=== PATIENT | female | born 1950 | race Caucasian/White ===

== ENCOUNTER → 2016-12-02 | Outpatient (CLI) | payer BC ==
--- NOTE | 2016-12-03 09:09 | RAD ---
DATE: 12/02/2016 EXAM: MAMMO YOLY SCREENING BILATERAL HISTORY: Routine screening COMPARISON: 06/14/2015 The breast parenchyma is heterogeneously dense, which could reduce sensitivity of mammography. Breast parenchyma level C. FINDINGS: 2-D and 3-D tomosynthesis imaging was performed in CC and MLO projections. No new or enlarging breast densities are seen. There are small benign-appearing lymph node type densities projected over the axillary tail region of the right breast, better delineated on today's tomosynthesis images than on the prior 2-D views. Minimal benign type calcifications present. No suspicious microcalcifications are evident. IMPRESSION: There is no mammographic evidence of malignancy in either breast. BI-RADS CATEGORY: 2 BENIGN FINDING(S) RECOMMENDED FOLLOW-UP: 6M 6 MONTH FOLLOW-UP PQRS compliance statement: Patient information was entered into a reminder system with a target due date for the next mammogram. Mammography is a sensitive method for finding small breast cancers, but it does not detect them all and is not a substitute for careful clinical examination. A negative mammogram does not negate a clinically suspicious finding and should not result in delay in biopsying a clinically suspicious abnormality. "Our facility is accredited by the [employer] Mammography [employer]."
== END | disposition home or self-care (01) ==
LOC: KCIC MAMMO 13:17
PROVIDERS: ATTEND Family Medicine
DX: Z12.31 Encounter for screening mammogram for malignant neoplasm of breast (principal)
CPT/HCPCS: 77063; G0202; 77067

== ENCOUNTER → 2020-04-12 | Outpatient (CLI) | payer MEDICARE ==
--- NOTE | 2020-04-12 19:01 | KCIC ---
BILATERAL SCREENING MAMMOGRAM, 3-D History: Routine screening. Comparison: Bilateral mammogram December 20, 2016. Technique: MLO and CC digital tomosynthesis (3D) images obtained. Radiologist reviewed these images on dedicated workstation. Findings: Breast Tissue Density C : The breasts are heterogeneously dense, which may obscure small masses. Bilateral glandular nodularity in the right breast is stable. There are no dominant masses, suspicious microcalcifications or architectural distortion. IMPRESSION: No mammographic evidence of malignancy. Recommend routine screening. BI-RADS category 2: Benign findings. The images were reviewed with computer-aided detection. Patient information is entered into reminder system with a target due date for the next screening [facility] mogram. Mammography is the most sensitive method for finding small breast cancers, but it does not detect the m all and is not a substitute for careful clinical examination. A negative mammogram does not negate a clinically suspicious finding and should not result in delay in biopsying a clinically suspicious a bnormality. "Our facility is accredited by the [employer] Mammography [employer]." Electronically signed by: Saulo Morfin MD (04/12/2020 6:58 PM) [email or web address]
== END ==
LOC: KCIC MAMMO 10:34
PROVIDERS: ATTEND Obstetrics & Gynecology
DX: Z12.31 Encounter for screening mammogram for malignant neoplasm of breast (principal)
CPT/HCPCS: 77063; 77067

== ENCOUNTER 2021-01-23 16:08 | Inpatient (IN) | payer MEDICARE ==
[~2021-01-23] VITALS: Ht 154.9 cm; Wt 77.2 kg
[2021-01-23] MEDS ORDERED: ONDANSETRON PF 4 MG/2 ML VIAL. IVP ONE (16:30)
[2021-01-23] MEDS ORDERED: MORPHINE SULFATE 4 MG/ML INJ. IVP ONE ×2 (16:30→18:00)
--- NOTE | 2021-01-23 17:04 | ED.ADGEN ---
Past Medical History Additional Past Medical Histor: PRE DIABETIC Past Surgical History: Cholecystectomy Additional Past Surgical Histo: SHOULDER Smoking Status: Never Smoker Alcohol Use: Rarely General Adult EDM: Chief Complaint: ANKLE PROBLEM HPI: HPI: Patient is a 70-year-old female who arrives via EMS after injuring her right ankle. Patient reportedly was chasing her cat when she slipped on some grass and felt her right ankle buckle. Patient states upon evaluating her ankle she noticed it was deformed as well as swollen. Patient also reports a significant pain associated with this injury. Despite this injury, the patient is without injury otherwise. Specifically she denies any injury to her foot or knee. She is awake, alert and in obvious discomfort. Review of Systems: Review of Systems: Constitutional: Denies fever or chills. [] Eyes: Denies change in visual acuity. [] HENT: Denies nasal congestion or sore throat. [] Respiratory: Denies cough or shortness of breath. [] Cardiovascular: Denies chest pain or edema. [] GI: Denies abdominal pain, nausea, vomiting, bloody stools or diarrhea. [] : Denies dysuria. [] Musculoskeletal: Reports extremity swelling as well as pain. Also reports joint swelling and joint pain. Denies back pain. [] Integument: Denies rash. [] Neurologic: Denies headache, focal weakness or sensory changes. [] Endocrine: Denies polyuria or polydipsia. [] Lymphatic: Denies swollen glands. [] Psychiatric: Denies depression or anxiety. [] Current Medications: Current Medications Medications (Trade) Dose Ordered Sig/Anaya Start Time Stop Time Status Last Admin Dose Admin Morphine Sulfate (Morphine Sulfate) 4 mg 1X ONCE 01/23/21 16:30 01/23/21 16:31 DC 01/23/21 16:35 4 MG Ondansetron HCl (Zofran) 4 mg 1X ONCE 01/23/21 16:30 01/23/21 16:31 DC 01/23/21 16:35 4 MG Propofol (Diprivan) 200 mg 1X ONCE 01/23/21 17:30 01/23/21 17:31 DC 01/23/21 17:41 200 MG Allergies: Allergies: Allergies Coded Allergies Type Severity Reaction Last Updated Verified No Known Drug Allergies 01/23/21 No Physical Exam: PE: Constitutional: Well developed, well nourished, no acute distress, non-toxic appearance. [] HENT: Normocephalic, atraumatic, bilateral external ears normal, oropharynx moist, no oral exudates, nose normal. [] Eyes: PERRLA, EOMI, conjunctiva normal, no discharge. [] Neck: Normal range of motion, no tenderness, supple, no stridor. [] Cardiovascular:Heart rate regular rhythm, no murmur [] Lungs & Thorax: Bilateral breath sounds clear to auscultation [] Abdomen: Bowel sounds normal, soft, no tenderness, no masses, no pulsatile masses. [] Skin: Warm, dry, no erythema, no rash. [] Back: No tenderness, no CVA tenderness. [] Extremities: Patient has what appears to be a deformity of the right ankle. There is an abrasion medially which does appear to be new. The patient does have sensation preserved as well as movement of her toes. No cyanosis, no clubbing, ROM intact, no edema. [] Neurologic: Alert and oriented X 3, normal motor function, normal sensory fun ction, no focal deficits noted. [] Psychologic: Affect normal, judgement normal, mood normal. [] Current Patient Data: Vital Signs: Vital Signs Date Time Temp Pulse Resp B/P (MAP) Pulse Ox O2 Delivery O2 Flow Rate FiO2 01/23/21 17:42 98.0 68 18 163/83 4.0 68 4.0 01/23/21 16:35 99 01/23/21 16:15 Room Air EKG: EKG: EKG was obtained at 1808 hrs. and reveals a normal sinus rhythm with a ve ntricular rate of 63 bpm. There are no acute ST/T wave changes to denote ischemia. This is an otherwise normal EKG. [] Heart Score: C/O Chest Pain: N/A Risk Factors: Risk Factors: DM, Current or recent (<one month) smoker, HTN, HLP, family history of CAD, obesity. Risk Scores: Score 0 - 3: 2.5% MACE over next 6 weeks - Discharge Home Score 4 - 6: 20.3% MACE over next 6 weeks - Admit for Clinical Observation Score 7 - 10: 72.7% MACE over next 6 weeks - Early Invasive Strategies Radiology/Procedures: Radiology/Procedures: [] Impression: [facility] [address] [place] [address] IMAGING REPORT Signed PATIENT: GISELLA MYLES ACCOUNT: [id number] : 1950 LOCATION: ER AGE: 70 SEX: F EXAM STATUS: REG ER ORD. PHYSICIAN: PATRICIA BRANDT DO REASON: injury/deformity PROCEDURE: ANKLE RIGHT 3V Exam: Right ankle 3 views INDICATION: Injury/deformity TECHNIQUE: Frontal, lateral oblique views of the right ankle Comparisons: None FINDINGS: There is a comminuted trimalleolar fracture of the right ankle obliquely oriented fracture at the distal fibula. A mildly displaced transverse fracture through the medial malleolus and a moderately displaced fracture to the posterior malleolus. There is dislocation at the tibiotalar joint space. Mild surrounding soft tissue swelling. Bone mineralization is normal. IMPRESSION: Comminuted trimalleolar fracture of the right ankle with dislocation at the tibiotalar joint space. Electronically signed by: Santiago Savage MD (01/23/2021 5:39 PM) [facility] DICTATED and SIGNED BY: SANTIAGO SAVAGE MD DATE: 01/23/21 [id number] Course & Med Decision Making: Course & Med Decision Making Pertinent Labs and Imaging studies reviewed. (See chart for details). The patient is awake, alert and in no acute distress. Patient was successfully reduced in the emergency department and repeat imaging was performed and showed a successful reduction with fracture maintained. Given the extent of the injury the patient has been admitted to the hospital service and Dr. Underwood from orthopedics has been consulted and has agreed to perform surgical intervention tomorrow. I have communicated this to the patient and she is in agreement with this course of action. She tolerated sedation very well and is nontoxic- appearing and resting comfortably without any supplemental oxygen required. She awaits transport to the floor. []1800hrs--I assumed care at shift change. Dr. Brandt attempted a closed reduction with conscious sedation but x-ray revealed procedure was unsuccessful. I evaluated the patient. Consent was obtained. Performed a second conscious sedation with closed reduction. Patient received a total of 120 mg of propofol. Initial dose of propofol was was 60 mg followed by 40 followed by an additional 20. Once successful anesthesia was achieved previous splint was removed I applied countertraction and alignment improved. We then resplinted patient's right lower extremity. X-ray was performed and shows improved align ment of the tibia upon talus. Dorsalis pedis and and posterior tibialis pulses palpated. Patient's right lower extremity propped up on a pillow. She was observed to presedation mental status. Patient tolerated conscious sedation closed reduction without complications. 1900hrs-patient is to go to the operating room. Dragon Disclaimer: Dragon Disclaimer: This electronic medical record was generated, in whole or in part, using a voice recognition dictation system. Procedural Sedation Proc Sed Indication: Fracture dislocation of right ankle [] Consent: I have discussed with the patient and/or the patient customer account representative the indication, alternatives, and the possible risks and /or complications of the planned procedure and the anesthesia methods. The patient and/or patient customer account representative appear to understand and agree to proceed. Pre-Sedation Documentation and Exam: Please refer to history of present illness and physical exam. There is obvious ankle deformity with pulses maintained. Airway Assessment: normal. Prior History of Anesthesia Complications: none. ASA Classification: 2 [] Sedation/ Anesthesia Plan: Propofol [] Medications Used: see nursing notes. Monitoring and Safety: The patient was placed on a regulatory affairs strategy specialist and vital signs, pulse oximetry and level of consciousness were continuously evaluated throughout the procedure. The patient was closely monitored until recovery from the medications was complete and the patient had returned to baseline status. Respiratory therapy was on standby at all times during the procedure. (The following sections must be completed) Post-Sedation Vital Signs: [EDM.VS] Post-Sedation Exam: [Successful reduction with pulses obtained in dorsalis pedis as well as medial malleolar regions.] Complications: none. Departure Departure Impression: Primary Impression: Fracture dislocation of right ankle joint Disposition: ADMITTED INPATIENT Admitting Physician: HIMS Condition: STABLE Referrals: VIRGIE PENA (PCP) PATRICIA BRANDT DO Jan 23, 2021 17:04 NITHYA GONZALEZ I DO Jan 23, 2021 19:00
[2021-01-23] MEDS ORDERED: PROPOFOL 10 MG/ML (20ML) VIAL. IV ONE ×3 (17:30→19:12)
--- NOTE | 2021-01-23 17:41 | RAD ---
Exam: Right ankle 3 views INDICATION: Injury/deformity TECHNIQUE: Frontal, lateral oblique views of the right ankle Comparisons: None FINDINGS: There is a comminuted trimalleolar fracture of the right ankle obliquely oriented fracture at the dis gustavo fibula. A mildly displaced transverse fracture through the medial malleolus and a moderately disp laced fracture to the posterior malleolus. There is dislocation at the tibiotalar joint space. Mild s urrounding soft tissue swelling. Bone mineralization is normal. IMPRESSION: Comminuted trimalleolar fracture of the right ankle with dislocation at the tibiotalar joint space. Electronically signed by: Santiago Bird MD (01/23/2021 5:39 PM) [facility]
[2021-01-23 17:42] VITALS: BP 163/83
--- NOTE | 2021-01-23 17:50 | PDOC1 ---
History and Physical Date of Service: DOS: DATE: 01/23/21 TIME: 17:47 Chief Complaint: Chief Complain: Fall with right ankle injury History of Present Illness: HPI: History obtained from discussion with the ED physician and chart review: 70-year-old female who arrives via EMS after injuring her right ankle. Patient reportedly was chasing her cat when she slipped on some grass and felt her right ankle buckle. Patient states upon evaluating her ankle she noticed it was deformed as well as swollen. Patient also reports a significant pain associated with this injury. Despite this injury, the patient is without injury otherwise. Specifically she denies any injury to her foot or knee. She is awake, alert and in obvious discomfort. Past Medical/Surgical History: PMH/PSH: Past Medical Histor: PRE DIABETIC Past Surgical History: Cholecystectomy, SHOULDER Allergies: Allergies: Coded Allergies: No Known Drug Allergies (Unverified , 01/23/21) Family History: Family History: Reviewed with no relevant findings Social History: Social History: Smoking Status: Never Smoker Alcohol Use: Rarely Current Medications: Current Medications Current Medications Ondansetron HCl (Zofran) 4 mg 1X ONCE IVP Last administered on 01/23/21at 16:35; Start 01/23/21 at 16:30; Stop 01/23/21 at 16:31; Status DC Morphine Sulfate (Morphine Sulfate) 4 mg 1X ONCE IVP Last administered on 01/23/21at 16:35; Start 01/23/21 at 16:30; Stop 01/23/21 at 16:31; Status DC Propofol (Diprivan) 200 mg 1X ONCE IV Last administered on 01/23/21at 17:41; Start 01/23/21 at 17:30; Stop 01/23/21 at 17:31; Status DC ROS: Review of Systems Review of System REVIEW OF SYSTEMS: GENERAL: Denies weakness SKIN: No bruising, hair changes or rashes. EYES: No blurred, double or loss of vision. NOSE AND THROAT: No history of nosebleeds, hoarseness or sore throat. HEART: No history of palpitations, chest pain or shortness of breath on exertion. LUNGS: Denies cough, hemoptysis, wheezing or shortness of breath. GASTROINTESTINAL: Denies changes in appetite, nausea, vomiting, diarrhea or constipation. GENITOURINARY: No history of frequency, urgency, hesitancy or nocturia. NEUROLOGIC: Denies history of numbness, tingling, or tremor. PSYCHIATRIC: No history of panic, anxiety or depression. ENDOCRINE: No history of heat or cold intolerance, polyuria or polydipsia. EXTREMITIES: Right ankle pain Physical Exam: Vital Signs: Vital Signs Date Time Temp Pulse Resp B/P (MAP) Pulse Ox O2 Delivery O2 Flow Rate FiO2 01/23/21 16:35 16 99 01/23/21 16:15 98.0 72 163/83 (109) Room Air 98.0 Physcial Exam: General: Well developed, well nourished, no acute distress, well appearing HEENT: Pupils equally round and reactive to light, EOMI, no discharge, normal conjunctiva Neck: Supple, no nuchal rigidity, no JVD, trachea midline, no tenderness Cardiac: RRR, no murmurs, no gallops, no rubs Chest/Lungs: CTAB, no wheeze, no rhonchi, no crackles Abdomen: soft, non-distended, no guarding, no peritoneal signs, non-tender Back: No tenderness Extremities: no edema, pulses intact, non-tender,capillary refill <3 sec bilateral upper and lower extremities, right ankle deformity Neuro: Alert and oriented x 4, no focal deficits, normal speech Labs: Labs: Pending Images: Images PROCEDURE: ANKLE RIGHT 3V IMPRESSION: Comminuted trimalleolar fracture of the right ankle with dislocation at the tibiotalar joint space. Assessment/Plan Assessment/Plan Mechanical fall Acute right comminuted trimalleolar fracture with dislocation of the tibiotalar joint space, mildly reduced in the ED under sedation History of prediabetes Admit to hospitalist MEY and kobe housing and will versus O2 requirement in the ED 94 and then he also does retest him again or are actually he did he did test positive for Covid gotcha okay and vaccinated for his offender on a gave him steroids already or okay thank you you right yeah yeah we will do that here so is Covid positive sounds good thanks Clarita service for further management Ortho consult for ORIF PT OT modalities IV and p.o. pain control N.p.o. Continue IV fluids Patient is a low risk for surgery, Young score of less than 0.1% Defer to orthopedics for DVT prophylaxis CODE STATUS full Discussed with RN and SW Disposition on-call to the OR tomorrow for ORIF DPOA: Justifications for Admission Other Justification LYDIA VAZQUEZ MD Jan 23, 2021 17:50
[2021-01-23] MEDS ORDERED: MORPHINE SULFATE 4 MG/ML INJ. IVP PRN (18:00)
[2021-01-23] MEDS ORDERED: ONDANSETRON PF 4 MG/2 ML VIAL. IVP PRN (18:00)
--- NOTE | 2021-01-23 18:35 | RAD ---
XR CHEST 1V, XR EXAM OF ANKLE_RIGHT 2 VIEWS One view chest: Clinical History: Reason: pre-operative xray / Spl. Instructions: / History: Technique: AP view of the chest was obtained at 01/23/2021 5:58 PM. Comparison: None. Findings: The cardiomediastinal silhouette is normal. The pulmonary vasculature is normal. The lungs and pleura l margins are clear. Impression: No evidence of an acute cardiopulmonary process. End impression 2 views right ankle 6:09 PM HISTORY: Postreduction Limited 2 view AP lateral views COMPARISON: 5:12 PM There is a spiral fracture of the distal fibula at and above the level plafond and with posterior dis placement and angulation. There is a fracture through the medial malleolus just below the level of th e plafond and there is posterior displacement of the talus from the tibia and a distracted fracture o f the posterior malleolus. IMPRESSION: Trimalleolar fracture dislocation. There is significant improved alignment however there continues to be full shaft width posterior disp lacement of the talus from the tibia and posterior displacement and angulation of the distal fibula a nd posterior displacement and distraction of the posterior malleolus. Electronically signed by: Cristiano Vargas III, MD (01/23/2021 6:33 PM) [facility]
[2021-01-23 18:40] VITALS: BP 134/62
[2021-01-23] MEDS ORDERED: HYDROmorphone 2 MG/ML VIAL ONE (18:59)
[2021-01-23] MEDS ORDERED: fentaNYL PF VIAL 100 MCG/2 ML VIAL ONE ×2 (19:12→21:56)
[2021-01-23] MEDS ORDERED: FAMOTIDINE 20 MG/2 ML VIAL ONE (19:12)
[2021-01-23] MEDS ORDERED: SUCCINYLCHOLINE 200 MG/10 ML VIAL. ONE (19:12)
[2021-01-23] MEDS ORDERED: PROPOFOL 50 ML IV ONE (19:12)
[2021-01-23] MEDS ORDERED: LIDOCAINE 2% PF 5 ML VIAL. ONE ×2 (19:12)
[2021-01-23] MEDS ORDERED: METOCLOPRAMIDE HCL 10 MG/2 ML VIAL. ONE (19:13)
[2021-01-23] MEDS ORDERED: ONDANSETRON PF 4 MG/2 ML VIAL. ONE (19:13)
[2021-01-23] MEDS ORDERED: HYDROmorphone 2 MG/ML VIAL IVP ONE (19:15)
--- NOTE | 2021-01-23 19:21 | RAD ---
Exam: Right ankle 2 views INDICATION: Post reduction TECHNIQUE: Frontal and lateral views of the right ankle Comparisons: Radiograph earlier today FINDINGS: There is redemonstration of trimalleolar fracture of the right ankle with mildly improved alignment. There is improved alignment at the tibiotalar joint space. No other fractures are identified. IMPRESSION: Moderately improved alignment at the trimalleolar fracture/dislocation of the right ankle Electronically signed by: Santiago Bird MD (01/23/2021 7:19 PM) [facility]
[2021-01-23] MEDS ORDERED: ACETAMINOPHEN 325 MG TABLET. PO PRN (19:30)
[2021-01-23] MEDS ORDERED: DOCUSATE SODIUM 100 MG CAPSULE. PO PRN (19:30)
[2021-01-23] MEDS ORDERED: IV RINGERS,LACTATED 1000ML 1,000 ML IV SCH (19:30)
[2021-01-23] MEDS ORDERED: fentaNYL PF VIAL 100 MCG/2 ML VIAL IVP PRN ×2 (19:30→22:30)
[2021-01-23] MEDS ORDERED: MORPHINE SULFATE 2 MG/ML INJ. IVP PRN ×2 (19:30)
[2021-01-23] MEDS ORDERED: HYDROmorphone 2 MG/ML VIAL IVP PRN (19:30)
[2021-01-23] MEDS ORDERED: HYDROcodone/APAP 5/325MG 1 TAB TABLET PO PRN (19:30)
[2021-01-23] MEDS ORDERED: MORPHINE SULFATE 2 MG/ML INJ. IV PRN (19:30)
[2021-01-23] MEDS ORDERED: PROCHLORPERAZINE 10 MG/2 ML VIAL. IVP PRN (19:30)
[2021-01-23] MEDS ORDERED: DEXTROSE 50% 25 GM / 50ML DISP.SYRIN. IV PRN ×2 (19:30→22:30)
[2021-01-23] MEDS ORDERED: BUPIVACAINE MPF 0.5% 30 ML VIAL. ONE (19:39)
[2021-01-23] MEDS ORDERED: MIDAZOLAM HCL/PF 2 MG/2 ML VIAL. ONE (19:42)
[2021-01-23] MEDS ORDERED: ceFAZolin SODIUM IV Push 1 GM VIAL. IVP ONE ×3 (20:14→20:30)
[2021-01-23] MEDS ORDERED: PHENYLEPHRINE in 0.9% NACL PF 1 MG/10 ML SYRINGE. IV ONE (20:16)
[2021-01-23] MEDS ORDERED: SEVOFLURANE > 120 MINUTES. IH ONE (21:43)
[2021-01-23] MEDS ORDERED: PROCHLORPERAZINE 10 MG/2 ML VIAL. ONE (21:59)
[2021-01-23] MEDS: fentaNYL PF VIAL 100 MCG/2 ML VIAL IVP PRN ×2 (22:03→22:18)
--- NOTE | 2021-01-23 22:23 | PDOC4 ---
Operative Note Operative Note Date of surgery: 01/23/2021 Preoperative diagnosis: Right trimalleolar ankle fracture dislocation Postoperative diagnosis: Same Operative procedure: Operative reduction internal fixation bimalleolar portion of trimalleolar ankle fracture Surgeon: Kj Anesthesia: General Estimated blood loss: 50 cc Complications: None Operative indications: Please see my dictated orthopedic consultation for detailed operative indications and note that we elected to proceed with more emergent surgery tonight based on the significant instability of her ankle as she subluxed again following an initial reduction procedure and I was concerned with overall instability or potential cartilage damage to her skin compromise if we waited overnight. I talked through with her the risks benefits postoperative course of the operative procedure including the possibility of infection skin complications nonhealing nerve or blood vessel damage stiffness pain swelling particularly given her history of swelling prior to her injury as well as medical other anesthetic complications. She agrees to proceed with surgical evaluation and treatment Operative text: Patient was identified procedure verified patient placed in the supine position on the operating table. After adequate amounts of general anesthesia were administered the right lower extremity was prepped and draped in standard sterile fashion and after timeout was performed patient procedure identified and verified the right lower extremity was exsanguinated by Esmarch bandage tourniquet inflated to 300 mm mercury and a curvilinear incision was m omega over the medial malleolus slightly anterior to the more posterior medial abrasions of the skin. Subperiosteal dissection was carried out and anatomic reduction of the medial fragment carried out under fluoroscopic guidance and fixation carried out with a 4.0 half threaded cannulated screw. A lateral incision was made and subperiosteal dissection carried out of the distal fibula which was visually reduced with near anatomic alignment verified to restore the ankle joint mortise and a Lainey 8 hole distal fibular locking plate stainless steel was placed shaft fixation carried out with nonlocking 3.5 screws and distal fixation with 2.7 locking screws. Excellent alignment of the plate and hardware was noted ankle joint mortise was noted to be in anatomic alignment and satisfactory reduction of the posterior malleolar fragment was obtained and did not require fixation due to the amount of arc involved. Positioning verified under multiple fluoroscopic views there irrigation carried out normal saline solution closure accomplished with buried Vicryl suture skin closure with pao a well-padded Ortho-Glass posterior splint was then placed toes were noted to be warm pink following deflation of the tourniquet after total tourniquet time slightly in excess of 1 hour. Patient was returned to recovery room in stable condition having tolerated procedure well SHLOMO CALIX MD Jan 23, 2021 22:23
[2021-01-23] MEDS ORDERED: POLYETHYLENE GLYCOL 3350 17 GM PACKET. PO PRN (22:30)
--- NOTE | 2021-01-23 22:35 | NUR ---
Patient received from PACU per bed to room 408. Admitting diagnosis: Right ankle fracture with dislocation. Patient had an ORIF of right ankle by Dr. Underwood. Patient is drowsy but alert. Patient lives alone. Patient has NKA. Patient right leg in elevated on pillows. Patient drifts off to sleep easily. Dressings C,D & I. Will continue to monitor.
[2021-01-23 23:03] VITALS: BP 144/72
[2021-01-23 23:23] VITALS: BP 138/67
[2021-01-24] VITALS (9 sets, daily range): BP systolic 114–159; BP diastolic 51–64
[2021-01-24 02:53] LABS: BASO % 0 % (0-3); EOS % 0 % (0-3); HEMATOCRIT 35.1 % (36.0-47.0); HEMOGLOBIN 11.8 g/dL (12.0-15.5); LYMPH # 0.4 x10^3/uL (1.0-4.8); LYMPH % 4 % (24-48); MEAN CORPUSCULAR HEMOGLOBIN 30 pg (25-35); MEAN CORPUSCULAR HGB CONC 34 g/dL (31-37); MEAN CORPUSCULAR VOLUME 90 fL (79-100); MONO # 0.6 x10^3/uL (0.0-1.1); MONO % 5 % (0-9); NEUT # 9.9 x10^3/uL (1.8-7.7); NEUT % 91 % (31-73); PLATELET COUNT 226 x10^3/uL (140-400); RED CELL DISTRIBUTION WIDTH 14.9 % (11.5-14.5); WHITE BLOOD COUNT 10.9 x10^3/uL (4.0-11.0)
[2021-01-24 03:03] LABS: PROTHROMBIN TIME PATIENT 13.6 SEC (11.7-14.0)
[2021-01-24 03:09] LABS: CALCIUM 7.6 mg/dL (8.5-10.1); CREATININE 0.9 mg/dL (0.6-1.0); GFR 61.7; MAGNESIUM 1.7 mg/dL (1.8-2.4); PHOSPHORUS 3.3 mg/dL (2.6-4.7)
[2021-01-24] MEDS: HYDROcodone/APAP 5/325MG 1 TAB TABLET PO PRN (03:49)
[2021-01-24] MEDS: ceFAZolin SODIUM IV Push 1 GM VIAL. IVP SCH ×3 (04:05→17:29)
[2021-01-24] MEDS: ONDANSETRON PF 4 MG/2 ML VIAL. IVP PRN ×4 (04:11→23:10)
[2021-01-24 05:28] LABS: % BANDS 8 % (0-9); % BASOS 1 % (0-3); % LYMPHS 6 % (24-48); % MONOS 3 % (0-10); % SEGS 82 % (35-66); PLT ESTIMATE ADEQUATE (ADEQUATE)
[2021-01-24] MEDS: IV NORMAL SALINE 1000ML BAG 1,000 ML IV SCH ×4 (05:30→23:13)
[2021-01-24] MEDS: PROCHLORPERAZINE 10 MG/2 ML VIAL. IV PRN ×2 (05:47→12:53)
[2021-01-24] MEDS ORDERED: MAGNESIUM HYDROXIDE 2,400 MG/30 ML ORAL.SUSP. PO PRN (06:00)
--- NOTE | 2021-01-24 07:29 | PDOC ---
PROGRESS NOTES Date of Service DATE: 01/24/21 TIME: 07:28 Subjective Subjective Problems overnight: Right ankle is painful and had difficulties with pain overnight really not responding to doses as much as 4 mg of morphine Objective Vital Signs Vital Signs Date Time Temp Pulse Resp B/P (MAP) Pulse Ox O2 Delivery O2 Flow Rate FiO2 01/24/21 04:16 20 Room Air 2.0 01/24/21 03:29 98.0 78 118/58 (78) 99 98.0 Physical Exam Can wiggle toes distal capillary refill intact splint clean dry intact Labs Laboratory Tests Test 01/23/21 18:00 01/24/21 02:30 SARS-CoV-2 Antigen (Rapid) Negative (NEGATIVE) White Blood Count 10.9 x10^3/uL (4.0-11.0) Red Blood Count 3.90 x10^6/uL (3.50-5.40) Hemoglobin 11.8 g/dL (12.0-15.5) Hematocrit 35.1 % (36.0-47.0) Mean Corpuscular Volume 90 fL (79-100) Mean Corpuscular Hemoglobin 30 pg (25-35) Mean Corpuscular Hemoglobin Concent 34 g/dL (31-37) Red Cell Distribution Width 14.9 % (11.5-14.5) Platelet Count 226 x10^3/uL (140-400) Neutrophils (%) (Auto) 91 % (31-73) Lymphocytes (%) (Auto) 4 % (24-48) Monocytes (%) (Auto) 5 % (0-9) Eosinophils (%) (Auto) 0 % (0-3) Basophils (%) (Auto) 0 % (0-3) Neutrophils # (Auto) 9.9 x10^3/uL (1.8-7.7) Lymphocytes # (Auto) 0.4 x10^3/uL (1.0-4.8) Monocytes # (Auto) 0.6 x10^3/uL (0.0-1.1) Eosinophils # (Auto) 0.0 x10^3/uL (0.0-0.7) Basophils # (Auto) 0.0 x10^3/uL (0.0-0.2) Segmented Neutrophils % 82 % (35-66) Band Neutrophils % 8 % (0-9) Lymphocytes % 6 % (24-48) Monocytes % 3 % (0-10) Basophils % 1 % (0-3) Platelet Estimate Adequate (ADEQUATE) Prothrombin Time 13.6 SEC (11.7-14.0) Prothromb Time International Ratio 1.0 (0.8-1.1) Sodium Level 139 mmol/L (136-145) Potassium Level 4.0 mmol/L (3.5-5.1) Chloride Level 105 mmol/L (98-107) Carbon Dioxide Level 26 mmol/L (21-32) Anion Gap 8 (6-14) Blood Urea Nitrogen 13 mg/dL (7-20) Creatinine 0.9 mg/dL (0.6-1.0) Estimated GFR (Cockcroft-Gault) 61.7 Glucose Level 149 mg/dL (70-99) Calcium Level 7.6 mg/dL (8.5-10.1) Phosphorus Level 3.3 mg/dL (2.6-4.7) Magnesium Level 1.7 mg/dL (1.8-2.4) Laboratory Tests Test 01/23/21 18:00 01/24/21 02:30 SARS-CoV-2 Antigen (Rapid) Negative (NEGATIVE) White Blood Count 10.9 x10^3/uL (4.0-11.0) Red Blood Count 3.90 x10^6/uL (3.50-5.40) Hemoglobin 11.8 g/dL (12.0-15.5) Hematocrit 35.1 % (36.0-47.0) Mean Corpuscular Volume 90 fL (79-100) Mean Corpuscular Hemoglobin 30 pg (25-35) Mean Corpuscular Hemoglobin Concent 34 g/dL (31-37) Red Cell Distribution Width 14.9 % (11.5-14.5) Platelet Count 226 x10^3/uL (140-400) Neutrophils (%) (Auto) 91 % (31-73) Lymphocytes (%) (Auto) 4 % (24-48) Monocytes (%) (Auto) 5 % (0-9) Eosinophils (%) (Auto) 0 % (0-3) Basophils (%) (Auto) 0 % (0-3) Neutrophils # (Auto) 9.9 x10^3/uL (1.8-7.7) Lymphocytes # (Auto) 0.4 x10^3/uL (1.0-4.8) Monocytes # (Auto) 0.6 x10^3/uL (0.0-1.1) Eosinophils # (Auto) 0.0 x10^3/uL (0.0-0.7) Basophils # (Auto) 0.0 x10^3/uL (0.0-0.2) Segmented Neutrophils % 82 % (35-66) Band Neutrophils % 8 % (0-9) Lymphocytes % 6 % (24-48) Monocytes % 3 % (0-10) Basophils % 1 % (0-3) Platelet Estimate Adequate (ADEQUATE) Prothrombin Time 13.6 SEC (11.7-14.0) Prothromb Time International Ratio 1.0 (0.8-1.1) Sodium Level 139 mmol/L (136-145) Potassium Level 4.0 mmol/L (3.5-5.1) Chloride Level 105 mmol/L (98-107) Carbon Dioxide Level 26 mmol/L (21-32) Anion Gap 8 (6-14) Blood Urea Nitrogen 13 mg/dL (7-20) Creatinine 0.9 mg/dL (0.6-1.0) Estimated GFR (Cockcroft-Gault) 61.7 Glucose Level 149 mg/dL (70-99) Calcium Level 7.6 mg/dL (8.5-10.1) Phosphorus Level 3.3 mg/dL (2.6-4.7) Magnesium Level 1.7 mg/dL (1.8-2.4) Imaging Intra-Op fluoroscopy views show excellent alignment with bimalleolar fixation of a trimalleolar ankle fracture Assessment Assessment POD#1 ORIF bimalleolar portion of trimalleolar right ankle fracture Plan Plan of Care Nonweightbearing to right lower extremity Stable from an orthopedic standpoint as long as she can get up and around maintaining nonweightbearing status Plan follow-up in about 10 to 14 days in orthopedic office with Mr. Chamorro Carlitosicifation of Admission Dx: Justifications for Admission: Justification of Admission Dx: N/A SHLOMO CALIX MD Jan 24, 2021 07:29
[2021-01-24] MEDS: HYDROmorphone 2 MG/ML VIAL IVP PRN ×4 (07:33→23:17)
--- NOTE | 2021-01-24 08:51 | CONS ---
DATE OF CONSULTATION: 01/23/2021 ORTHOPEDIC CONSULTATION REASON FOR CONSULTATION: Right trimalleolar ankle fracture dislocation. HISTORY OF PRESENT ILLNESS: The patient is a 70-year-old female who was actually out trying to direct a cow when she slipped on some grass and turned her right ankle over. She had immediate onset of deformity and inability to bear weight. She denies any loss of consciousness, other joint injury, hitting her head. No neck or back pain. PAST MEDICAL HISTORY: She has been told that she is prediabetic and indicates only being on a diuretic off and on previously and notes that even prior to the right ankle injury, that she had had some swelling in that right leg. PAST SURGICAL HISTORY: Shoulder surgery and cholecystectomy. SOCIAL HISTORY: Independently ambulatory. Denies smoking or drug use. Rare use of alcohol. ALLERGIES: She has no known drug allergies. MEDICATIONS: Only include Meloxicam, which she has not taken over the past several days. There was a diuretic. She was not sure if she knew the exact name of that, she had been taking for a few days. REVIEW OF SYSTEMS: Denies any chest pain, shortness of breath, any visual change, headache, focal weakness, numbness, tingling, neck or back pain, any other joint pain. She does have obvious right ankle pain, deformity, swelling and some preexisting swelling in the right lower extremity prior to the injury that she reports. PHYSICAL EXAMINATION: GENERAL: Pleasant, cooperative 70-year-old female, alert and oriented, in no acute distress. EXTREMITIES: On examination of the left ankle, she has no skin deformity, but does have swelling and gross instability of the ankle. Tenderness over the medial and lateral posterior malleoli. She can wiggle her toes gently and has distal capillary refill, sensation and palpable pulses in the bilateral feet. Normal alignment and stability, bilateral hips and knees. Likewise, normal alignment and stability, bilateral shoulders, elbows and wrists, with intact motor function, distal pulses, sensation, reflexes, skin in both upper extremities throughout. LABORATORY DATA: X-rays show a displaced trimalleolar ankle fracture dislocation, with initial reduction attempt showing posterior subluxation better in the subsequent attempt. IMPRESSION: Trimalleolar ankle fracture dislocation. TREATMENT PLAN: I went over with her my rationale for going ahead to fix this surgically tonight because of the instability. I really do not want it to potentially slip out of joint again and spend a longer time, potentially with cartilage damage or to allow much more swelling that may preclude early surgery and fixation. We went through the risks of potential infection, nerve or blood vessel damage, continued pain, nonhealing, swelling even more than her baseline, medical or other anesthetic complications among others. All her questions were answered. She does wish to proceed with surgical evaluation and treatment, which will occur this evening as I discuss the alternatives with of Anesthesia. URSULA/XU/RIMA DR: URSULA/[place] TID: [id number]
[2021-01-24] MEDS: ASPIRIN 325 MG TABLET PO SCH (09:28)
[2021-01-24] MEDS: oxyCODONE IR 5 MG TABLET PO PRN ×2 (09:28→18:01)
[2021-01-24] MEDS: SENNOSIDES 8.6 MG TABLET PO PRN (09:28)
[2021-01-24] MEDS: SENNOSIDES/DOCUSATE 8.6/50MG TABLET. PO SCH (09:32)
--- NOTE | 2021-01-24 10:21 | NUR ---
SW following. Discussed with RN, pt from home alone, 2L (due to medications), GI soft, Rapid COVID-19 negative. Pt had surgery on 01/23/21. PT/OT ordered. RN advised no SW needs at this time. SW will continue to follow.
--- NOTE | 2021-01-24 12:47 | PDOC ---
[facility] PROGRESS NOTE Date of Service DOS: DATE: 01/24/21 TIME: 12:44 Chief Complaint Chief Complaint Fall History of Present Illness History of Present Illness History obtained from discussion with the ED physician and chart review: 70-year-old female who arrives via EMS after injuring her right ankle. Patient reportedly was chasing her cat when she slipped on some grass and felt her right ankle buckle. Patient states upon evaluating her ankle she noticed it was deformed as well as swollen. Patient also reports a significant pain associated with this injury. Despite this injury, the patient is without injury otherwise. Specifically she denies any injury to her foot or knee. She is awake, alert and in obvious discomfort 01/24 Patient examined at bedside. Underwent surgery yesterday. This morning complaining of some pain but overall doing well. PT OT per Ortho. Vitals/I&O Vitals/I&O: Vital Signs Date Time Temp Pulse Resp B/P (MAP) Pulse Ox O2 Delivery O2 Flow Rate FiO2 01/24/21 12:35 97 Nasal Cannula 2.0 01/24/21 10:34 98.4 53 20 114/61 (78) 98.4 I & O 01/23/21 01/23/21 01/24/21 15:00 23:00 07:00 Intake Total 1200 ml 120 ml Output Total 50 ml Balance 1150 ml 120 ml Physical Exam General: Alert, Oriented X3, Cooperative Heart: Regular rate, Normal S1, Normal S2 Lungs: Clear Abdomen: Normal bowel sounds, Soft, No tenderness Extremities: No edema, Normal pulses Skin: No significant lesion Labs Labs: Laboratory Tests Test 01/23/21 18:00 01/24/21 02:30 SARS-CoV-2 Antigen (Rapid) Negative (NEGATIVE) White Blood Count 10.9 x10^3/uL (4.0-11.0) Red Blood Count 3.90 x10^6/uL (3.50-5.40) Hemoglobin 11.8 g/dL (12.0-15.5) Hematocrit 35.1 % (36.0-47.0) Mean Corpuscular Volume 90 fL (79-100) Mean Corpuscular Hemoglobin 30 pg (25-35) Mean Corpuscular Hemoglobin Concent 34 g/dL (31-37) Red Cell Distribution Width 14.9 % (11.5-14.5) Platelet Count 226 x10^3/uL (140-400) Neutrophils (%) (Auto) 91 % (31-73) Lymphocytes (%) (Auto) 4 % (24-48) Monocytes (%) (Auto) 5 % (0-9) Eosinophils (%) (Auto) 0 % (0-3) Basophils (%) (Auto) 0 % (0-3) Neutrophils # (Auto) 9.9 x10^3/uL (1.8-7.7) Lymphocytes # (Auto) 0.4 x10^3/uL (1.0-4.8) Monocytes # (Auto) 0.6 x10^3/uL (0.0-1.1) Eosinophils # (Auto) 0.0 x10^3/uL (0.0-0.7) Basophils # (Auto) 0.0 x10^3/uL (0.0-0.2) Segmented Neutrophils % 82 % (35-66) Band Neutrophils % 8 % (0-9) Lymphocytes % 6 % (24-48) Monocytes % 3 % (0-10) Basophils % 1 % (0-3) Platelet Estimate Adequate (ADEQUATE) Prothrombin Time 13.6 SEC (11.7-14.0) Prothromb Time International Ratio 1.0 (0.8-1.1) Sodium Level 139 mmol/L (136-145) Potassium Level 4.0 mmol/L (3.5-5.1) Chloride Level 105 mmol/L (98-107) Carbon Dioxide Level 26 mmol/L (21-32) Anion Gap 8 (6-14) Blood Urea Nitrogen 13 mg/dL (7-20) Creatinine 0.9 mg/dL (0.6-1.0) Estimated GFR (Cockcroft-Gault) 61.7 Glucose Level 149 mg/dL (70-99) Calcium Level 7.6 mg/dL (8.5-10.1) Phosphorus Level 3.3 mg/dL (2.6-4.7) Magnesium Level 1.7 mg/dL (1.8-2.4) Assessment and Plan Assessmemt and Plan Problems Medical Problems: (1) Fracture dislocation of right ankle joint Status: Acute Mechanical fall Acute right comminuted trimalleolar fracture with dislocation of the tibiotalar joint space, mildly reduced in the ED under sedation History of prediabetes Ortho consult for ORIF --> s/p ORIF PT OT modalities IV and p.o. pain control Diet Continue IV fluids Patient is a low risk for surgery, Young score of less than 0.1% Defer to orthopedics for DVT prophylaxis CODE STATUS full Discussed with RN and CELE DPOA: Comment Review of Relevant I have reviewed the following items charles (where applicable) has been applied. Medications: Current Medications Medications (Trade) Dose Ordered Sig/Anaya Route PRN Reason Start Time Stop Time Status Last Admin Dose Admin Ondansetron HCl (Zofran) 4 mg 1X ONCE IVP 01/23/21 16:30 01/23/21 16:31 DC 01/23/21 16:35 Morphine Sulfate (Morphine Sulfate) 4 mg 1X ONCE IVP 01/23/21 16:30 01/23/21 16:31 DC 01/23/21 16:35 Propofol (Diprivan) 200 mg 1X ONCE IV 01/23/21 17:30 01/23/21 17:31 DC 01/23/21 17:41 Morphine Sulfate (Morphine Sulfate) 4 mg PRN Q2HR PRN IVP PAIN 01/23/21 18:00 01/24/21 17:59 01/24/21 03:08 Morphine Sulfate (Morphine Sulfate) 4 mg 1X ONCE IVP 01/23/21 18:00 01/23/21 18:22 DC 01/23/21 18:03 Propofol (Diprivan) 60 mg 1X ONCE IV 01/23/21 18:30 01/23/21 18:35 DC 01/23/21 18:32 Hydromorphone HCl (Dilaudid) 0.5 mg 1X ONCE IVP 01/23/21 19:15 01/23/21 19:16 DC 01/23/21 19:15 Fentanyl Citrate (Fentanyl 2ml Vial) 25 mcg PRN Q5MIN PRN IVP MILD PAIN 1-3 01/23/21 19:30 01/24/21 02:00 DC 01/24/21 00:18 Fentanyl Citrate (Fentanyl 2ml Vial) 50 mcg PRN Q5MIN PRN IVP MODERATE PAIN 4-6 01/23/21 19:30 01/24/21 02:00 DC 01/23/21 22:18 Prochlorperazine Edisylate (Compazine) 5 mg PACU PRN PRN IVP NAUSEA, MRX1 01/23/21 19:30 01/24/21 02:00 DC 01/23/21 22:02 Ondansetron HCl (Zofran) 4 mg PRN Q6HRS PRN IVP NAUSEA/VOMITING (1st Choice) 01/23/21 19:30 01/24/21 04:11 Sodium Chloride 1,000 ml @ 100 mls/hr Q10H IV 01/23/21 19:30 01/24/21 07:37 Acetaminophen/ Hydrocodone Bitart (Lortab 5/325) 2 tab PRN Q4HRS PRN PO MODERATE PAIN, SEVERE PAIN 01/23/21 19:30 01/24/21 03:49 Morphine Sulfate (Morphine Sulfate) 2 mg PRN Q2HR PRN IVP SEVERE PAIN 7-10 01/23/21 19:30 01/24/21 19:29 01/23/21 23:19 Prochlorperazine Edisylate (Compazine) 10 mg PRN Q6HRS PRN IV NAUSEA/VOMITING (2nd Choice) 01/23/21 19:30 01/24/21 05:47 Cefazolin Sodium/ Dextrose 50 ml @ 100 mls/hr 1X ONCE IV 01/23/21 22:00 01/23/21 22:29 DC 01/23/21 20:08 Oxycodone HCl (Roxicodone) 5 mg PRN Q3HRS PRN PO MODERATE PAIN 4-6 01/23/21 22:30 01/24/21 09:28 Fentanyl Citrate (Fentanyl 2ml Vial) 25 mcg PRN Q1HR PRN IVP SEVERE PAIN 7-10 01/23/21 22:30 01/24/21 03:46 Senna/Docusate Sodium (Senna Plus) 1 tab DAILY PO 01/24/21 09:00 01/24/21 09:32 Ondansetron HCl (Zofran) 4 mg PRN Q4HRS PRN IVP NAUSEA/VOMITING 1ST CHOICE 01/23/21 22:30 01/24/21 09:47 Aspirin (Katerina Aspirin) 325 mg DAILYWBKFT PO 01/24/21 08:00 01/24/21 09:28 Cefazolin Sodium (Ancef) 1 gm Q6H IVP 01/24/21 04:00 01/24/21 16:01 01/24/21 09:33 Hydromorphone HCl (Dilaudid) 0.4 mg PRN Q2HR PRN IVP SEVERE PAIN 7-10 01/24/21 06:45 01/24/21 07:33 Justifications for Admission Other Justification Right ankle fracture KYLE HURST MD Jan 24, 2021 12:47
[2021-01-24] MEDS ORDERED: PANTOPRAZOLE IV PUSH 40 MG VIAL. IVP SCH (13:00)
[2021-01-24] MEDS ORDERED: PANT40TA6 PO (13:17)
[2021-01-24] MEDS ORDERED: ESTR1PAT33 TD (13:17)
[2021-01-24] MEDS ORDERED: IV NORMAL SALINE 1000ML BAG 1,000 ML IV ONE (14:30)
[2021-01-24] MEDS ORDERED: diphenhydrAMINE 50 MG/ML VIAL IVP PRN (14:30)
[2021-01-24] MEDS ORDERED: BISACODYL 10 MG SUPP.RECT. PR PRN (16:00)
[2021-01-24] MEDS: PANTOPRAZOLE IV PUSH 40 MG VIAL. IVP SCH (21:41)
[2021-01-25] MEDS: HYDROcodone/APAP 5/325MG 1 TAB TABLET PO PRN ×3 (00:35→20:40)
[2021-01-25 03:00] VITALS: BP 123/52
[2021-01-25] MEDS: PANTOPRAZOLE IV PUSH 40 MG VIAL. IVP SCH ×2 (06:29→16:41)
[2021-01-25 07:00] VITALS: BP 121/54
[2021-01-25 07:24] LABS: BASO % 1 % (0-3); EOS # 0.1 x10^3/uL (0.0-0.7); EOS % 2 % (0-3); HEMATOCRIT 29.6 % (36.0-47.0); HEMOGLOBIN 9.9 g/dL (12.0-15.5); LYMPH # 1.3 x10^3/uL (1.0-4.8); LYMPH % 22 % (24-48); MEAN CORPUSCULAR HEMOGLOBIN 30 pg (25-35); MEAN CORPUSCULAR HGB CONC 34 g/dL (31-37); MEAN CORPUSCULAR VOLUME 91 fL (79-100); MONO # 0.6 x10^3/uL (0.0-1.1); MONO % 10 % (0-9); NEUT # 3.9 x10^3/uL (1.8-7.7); NEUT % 65 % (31-73); PLATELET COUNT 175 x10^3/uL (140-400); RED BLOOD COUNT 3.27 x10^6/uL (3.50-5.40); RED CELL DISTRIBUTION WIDTH 14.9 % (11.5-14.5)
[2021-01-25 07:43] LABS: CALCIUM 7.3 mg/dL (8.5-10.1); CREATININE 0.7 mg/dL (0.6-1.0); GFR 82.5; MAGNESIUM 1.8 mg/dL (1.8-2.4); POTASSIUM 3.3 mmol/L (3.5-5.1)
[2021-01-25] MEDS: SENNOSIDES 8.6 MG TABLET PO PRN ×2 (08:34→08:35)
[2021-01-25] MEDS: ASPIRIN 325 MG TABLET PO SCH ×2 (08:34→08:35)
[2021-01-25] MEDS: SENNOSIDES/DOCUSATE 8.6/50MG TABLET. PO SCH (08:38)
[2021-01-25] MEDS: IV NORMAL SALINE 1000ML BAG 1,000 ML IV SCH ×2 (08:48→19:21)
--- NOTE | 2021-01-25 09:06 | PDOC ---
PROGRESS NOTES Date of Service DATE: 01/25/21 TIME: 09:04 Subjective Subjective Problems overnight: Still having some struggles with pain control particularly last night, reports getting up and around maintaining nonweightbearing status with physical therapy but has really not used the knee scooter that is currently in her room yet Objective Vital Signs Vital Signs Date Time Temp Pulse Resp B/P (MAP) Pulse Ox O2 Delivery O2 Flow Rate FiO2 01/25/21 03:00 98.6 73 18 123/52 (75) 94 Room Air 98.6 01/25/21 01:11 2.0 Physical Exam Splint clean dry intact she is able to wiggle her toes distal capillary refill sensation are intact Labs Laboratory Tests Test 01/23/21 18:00 01/24/21 02:30 01/25/21 05:50 SARS-CoV-2 Antigen (Rapid) Negative (NEGATIVE) White Blood Count 10.9 x10^3/uL (4.0-11.0) 6.0 x10^3/uL (4.0-11.0) Red Blood Count 3.90 x10^6/uL (3.50-5.40) 3.27 x10^6/uL (3.50-5.40) Hemoglobin 11.8 g/dL (12.0-15.5) 9.9 g/dL (12.0-15.5) Hematocrit 35.1 % (36.0-47.0) 29.6 % (36.0-47.0) Mean Corpuscular Volume 90 fL (79-100) 91 fL (79-100) Mean Corpuscular Hemoglobin 30 pg (25-35) 30 pg (25-35) Mean Corpuscular Hemoglobin Concent 34 g/dL (31-37) 34 g/dL (31-37) Red Cell Distribution Width 14.9 % (11.5-14.5) 14.9 % (11.5-14.5) Platelet Count 226 x10^3/uL (140-400) 175 x10^3/uL (140-400) Neutrophils (%) (Auto) 91 % (31-73) 65 % (31-73) Lymphocytes (%) (Auto) 4 % (24-48) 22 % (24-48) Monocytes (%) (Auto) 5 % (0-9) 10 % (0-9) Eosinophils (%) (Auto) 0 % (0-3) 2 % (0-3) Basophils (%) (Auto) 0 % (0-3) 1 % (0-3) Neutrophils # (Auto) 9.9 x10^3/uL (1.8-7.7) 3.9 x10^3/uL (1.8-7.7) Lymphocytes # (Auto) 0.4 x10^3/uL (1.0-4.8) 1.3 x10^3/uL (1.0-4.8) Monocytes # (Auto) 0.6 x10^3/uL (0.0-1.1) 0.6 x10^3/uL (0.0-1.1) Eosinophils # (Auto) 0.0 x10^3/uL (0.0-0.7) 0.1 x10^3/uL (0.0-0.7) Basophils # (Auto) 0.0 x10^3/uL (0.0-0.2) 0.0 x10^3/uL (0.0-0.2) Segmented Neutrophils % 82 % (35-66) Band Neutrophils % 8 % (0-9) Lymphocytes % 6 % (24-48) Monocytes % 3 % (0-10) Basophils % 1 % (0-3) Platelet Estimate Adequate (ADEQUATE) Prothrombin Time 13.6 SEC (11.7-14.0) Prothromb Time International Ratio 1.0 (0.8-1.1) Sodium Level 139 mmol/L (136-145) 142 mmol/L (136-145) Potassium Level 4.0 mmol/L (3.5-5.1) 3.3 mmol/L (3.5-5.1) Chloride Level 105 mmol/L (98-107) 109 mmol/L (98-107) Carbon Dioxide Level 26 mmol/L (21-32) 28 mmol/L (21-32) Anion Gap 8 (6-14) 5 (6-14) Blood Urea Nitrogen 13 mg/dL (7-20) 8 mg/dL (7-20) Creatinine 0.9 mg/dL (0.6-1.0) 0.7 mg/dL (0.6-1.0) Estimated GFR (Cockcroft-Gault) 61.7 82.5 Glucose Level 149 mg/dL (70-99) 106 mg/dL (70-99) Calcium Level 7.6 mg/dL (8.5-10.1) 7.3 mg/dL (8.5-10.1) Phosphorus Level 3.3 mg/dL (2.6-4.7) Magnesium Level 1.7 mg/dL (1.8-2.4) 1.8 mg/dL (1.8-2.4) Laboratory Tests Test 01/25/21 05:50 White Blood Count 6.0 x10^3/uL (4.0-11.0) Red Blood Count 3.27 x10^6/uL (3.50-5.40) Hemoglobin 9.9 g/dL (12.0-15.5) Hematocrit 29.6 % (36.0-47.0) Mean Corpuscular Volume 91 fL (79-100) Mean Corpuscular Hemoglobin 30 pg (25-35) Mean Corpuscular Hemoglobin Concent 34 g/dL (31-37) Red Cell Distribution Width 14.9 % (11.5-14.5) Platelet Count 175 x10^3/uL (140-400) Neutrophils (%) (Auto) 65 % (31-73) Lymphocytes (%) (Auto) 22 % (24-48) Monocytes (%) (Auto) 10 % (0-9) Eosinophils (%) (Auto) 2 % (0-3) Basophils (%) (Auto) 1 % (0-3) Neutrophils # (Auto) 3.9 x10^3/uL (1.8-7.7) Lymphocytes # (Auto) 1.3 x10^3/uL (1.0-4.8) Monocytes # (Auto) 0.6 x10^3/uL (0.0-1.1) Eosinophils # (Auto) 0.1 x10^3/uL (0.0-0.7) Basophils # (Auto) 0.0 x10^3/uL (0.0-0.2) Sodium Level 142 mmol/L (136-145) Potassium Level 3.3 mmol/L (3.5-5.1) Chloride Level 109 mmol/L (98-107) Carbon Dioxide Level 28 mmol/L (21-32) Anion Gap 5 (6-14) Blood Urea Nitrogen 8 mg/dL (7-20) Creatinine 0.7 mg/dL (0.6-1.0) Estimated GFR (Cockcroft-Gault) 82.5 Glucose Level 106 mg/dL (70-99) Calcium Level 7.3 mg/dL (8.5-10.1) Magnesium Level 1.8 mg/dL (1.8-2.4) Imaging Intra-Op fluoroscopic views show excellent positioning of a bimalleolar portion of a trimalleolar ankle fracture Assessment Assessment POD#ORIF right ankle fracture dislocation Plan Plan of Detention if medically stable and safe with ambulation and transfers Follow-up with Dr. Underwood or Ashtyn 10 to 14 days Strict nonweightbearing right lower extremity in the interim Justicifation of Admission Dx: Justifications for Admission: Justification of Admission Dx: N/A SHLOMO UNDEROWOD MD Jan 25, 2021 09:06
[2021-01-25] MEDS: MORPHINE SULFATE 2 MG/ML INJ. IVP PRN ×2 (09:51→20:40)
[2021-01-25 11:00] VITALS: BP 119/59
--- NOTE | 2021-01-25 12:00 | PDOC ---
[facility] PROGRESS NOTE Date of Service DOS: DATE: 01/25/21 TIME: 11:59 Chief Complaint Chief Complaint Fall History of Present Illness History of Present Illness History obtained from discussion with the ED physician and chart review: 70-year-old female who arrives via EMS after injuring her right ankle. Patient reportedly was chasing her cat when she slipped on some grass and felt her right ankle buckle. Patient states upon evaluating her ankle she noticed it was deformed as well as swollen. Patient also reports a significant pain associated with this injury. Despite this injury, the patient is without injury otherwise. Specifically she denies any injury to her foot or knee. She is awake, alert and in obvious discomfort 01/24 Patient examined at bedside. Underwent surgery yesterday. This morning complaining of some pain but overall doing well. PT OT per Ortho. 01/25 Patient seen at bedside. Is endorsing some ongoing pain. Worked with physical therapy. Likely will need SNF placement to continue nonweightbearing status. Vitals/I&O Vitals/I&O: Vital Signs Date Time Temp Pulse Resp B/P (MAP) Pulse Ox O2 Delivery O2 Flow Rate FiO2 01/25/21 11:00 98.0 79 18 119/59 (79) 94 Room Air 98.0 01/25/21 01:11 2.0 I & O 01/24/21 01/24/21 01/25/21 15:00 23:00 07:00 Intake Total 600 ml 1000 ml Balance 600 ml 1000 ml Physical Exam General: Alert, Oriented X3, Cooperative Heart: Regular rate, Normal S1, Normal S2 Lungs: Clear Abdomen: Normal bowel sounds, Soft, No tenderness Extremities: No edema, Normal pulses Skin: No significant lesion Labs Labs: Laboratory Tests Test 01/25/21 05:50 White Blood Count 6.0 x10^3/uL (4.0-11.0) Red Blood Count 3.27 x10^6/uL (3.50-5.40) Hemoglobin 9.9 g/dL (12.0-15.5) Hematocrit 29.6 % (36.0-47.0) Mean Corpuscular Volume 91 fL (79-100) Mean Corpuscular Hemoglobin 30 pg (25-35) Mean Corpuscular Hemoglobin Concent 34 g/dL (31-37) Red Cell Distribution Width 14.9 % (11.5-14.5) Platelet Count 175 x10^3/uL (140-400) Neutrophils (%) (Auto) 65 % (31-73) Lymphocytes (%) (Auto) 22 % (24-48) Monocytes (%) (Auto) 10 % (0-9) Eosinophils (%) (Auto) 2 % (0-3) Basophils (%) (Auto) 1 % (0-3) Neutrophils # (Auto) 3.9 x10^3/uL (1.8-7.7) Lymphocytes # (Auto) 1.3 x10^3/uL (1.0-4.8) Monocytes # (Auto) 0.6 x10^3/uL (0.0-1.1) Eosinophils # (Auto) 0.1 x10^3/uL (0.0-0.7) Basophils # (Auto) 0.0 x10^3/uL (0.0-0.2) Sodium Level 142 mmol/L (136-145) Potassium Level 3.3 mmol/L (3.5-5.1) Chloride Level 109 mmol/L (98-107) Carbon Dioxide Level 28 mmol/L (21-32) Anion Gap 5 (6-14) Blood Urea Nitrogen 8 mg/dL (7-20) Creatinine 0.7 mg/dL (0.6-1.0) Estimated GFR (Cockcroft-Gault) 82.5 Glucose Level 106 mg/dL (70-99) Calcium Level 7.3 mg/dL (8.5-10.1) Magnesium Level 1.8 mg/dL (1.8-2.4) Assessment and Plan Assessmemt and Plan Problems Medical Problems: (1) Fracture dislocation of right ankle joint Status: Acute Mechanical fall Acute right comminuted trimalleolar fracture with dislocation of the tibiotalar joint space, mildly reduced in the ED under sedation History of prediabetes Ortho consult for ORIF --> s/p ORIF PT OT modalities IV and p.o. pain control Diet PT/OT CODE STATUS full Discussed with RN and CELE DPOA: Comment Review of Relevant I have reviewed the following items charles (where applicable) has been applied. Medications: Current Medications Medications (Trade) Dose Ordered Sig/Anaya Route PRN Reason Start Time Stop Time Status Last Admin Dose Admin Pantoprazole Sodium (PROTONIX VIAL for IV PUSH) 40 mg DAILYAC IVP 01/24/21 13:00 01/24/21 17:54 DC 01/24/21 12:53 Sodium Chloride 1,000 ml @ 1,000 mls/hr 1X ONCE IV 01/24/21 14:30 01/24/21 15:29 DC 01/24/21 14:40 Diphenhydramine HCl (Benadryl) 12.5 mg PRN Q4HRS PRN IVP ALLERGIES 01/24/21 14:30 01/24/21 14:37 Lorazepam (Ativan Inj) 2 mg PRN Q4HRS PRN IVP ANXIETY / AGITATION 01/24/21 14:30 01/25/21 01:02 Pantoprazole Sodium (PROTONIX VIAL for IV PUSH) 40 mg BIDAC IVP 01/24/21 21:00 01/25/21 06:29 Justifications for Admission Other Justification Right ankle fracture KYLE HURST MD Jan 25, 2021 12:00
[2021-01-25 15:00] VITALS: BP 125/62
[2021-01-25 19:20] VITALS: BP 148/66
--- NOTE | 2021-01-25 20:30 | NUR ---
At 1999 patient was trying to go to bathroom to void and patient fell. Patient was being assisted by [employer] and was using walker and gait belt. Patient assisted back to bed and instructed to use bedside commode next time. Patient agreed to using bedside commode the next time she needed to urinate.
[2021-01-25 23:19] VITALS: BP 154/67
[2021-01-26] MEDS: MORPHINE SULFATE 2 MG/ML INJ. IVP PRN (01:03)
[2021-01-26] MEDS: HYDROcodone/APAP 5/325MG 1 TAB TABLET PO PRN ×3 (01:04→18:16)
[2021-01-26 03:21] VITALS: BP 146/68
[2021-01-26 04:53] LABS: BASO % 1 % (0-3); EOS # 0.2 x10^3/uL (0.0-0.7); EOS % 3 % (0-3); HEMATOCRIT 30.8 % (36.0-47.0); HEMOGLOBIN 10.4 g/dL (12.0-15.5); LYMPH # 1.3 x10^3/uL (1.0-4.8); LYMPH % 20 % (24-48); MEAN CORPUSCULAR HEMOGLOBIN 31 pg (25-35); MEAN CORPUSCULAR HGB CONC 34 g/dL (31-37); MEAN CORPUSCULAR VOLUME 90 fL (79-100); MONO # 0.6 x10^3/uL (0.0-1.1); MONO % 9 % (0-9); NEUT # 4.4 x10^3/uL (1.8-7.7); NEUT % 67 % (31-73); PLATELET COUNT 189 x10^3/uL (140-400); RED BLOOD COUNT 3.41 x10^6/uL (3.50-5.40); RED CELL DISTRIBUTION WIDTH 14.8 % (11.5-14.5); WHITE BLOOD COUNT 6.5 x10^3/uL (4.0-11.0)
[2021-01-26 05:07] LABS: CALCIUM 7.5 mg/dL (8.5-10.1); CREATININE 0.7 mg/dL (0.6-1.0); GFR 82.5; MAGNESIUM 1.8 mg/dL (1.8-2.4); POTASSIUM 3.2 mmol/L (3.5-5.1)
[2021-01-26] MEDS: IV NORMAL SALINE 1000ML BAG 1,000 ML IV SCH (05:57)
[2021-01-26 07:15] VITALS: BP 142/68
[2021-01-26] MEDS: SENNOSIDES/DOCUSATE 8.6/50MG TABLET. PO SCH (07:55)
[2021-01-26] MEDS: PANTOPRAZOLE IV PUSH 40 MG VIAL. IVP SCH ×2 (07:55→16:21)
[2021-01-26] MEDS: ONDANSETRON PF 4 MG/2 ML VIAL. IVP PRN (09:23)
--- NOTE | 2021-01-26 10:39 | PDOC ---
[employer] PROGRESS NOTE Date of Service DOS: DATE: 01/26/21 TIME: 10:38 Chief Complaint Chief Complaint Fall History of Present Illness History of Present Illness History obtained from discussion with the ED physician and chart review: 70-year-old female who arrives via EMS after injuring her right ankle. Patient reportedly was chasing her cat when she slipped on some grass and felt her right ankle buckle. Patient states upon evaluating her ankle she noticed it was deformed as well as swollen. Patient also reports a significant pain associated with this injury. Despite this injury, the patient is without injury otherwise. Specifically she denies any injury to her foot or knee. She is awake, alert and in obvious discomfort 01/24 Patient examined at bedside. Underwent surgery yesterday. This morning complaining of some pain but overall doing well. PT OT per Ortho. 01/25 Patient seen at bedside. Is endorsing some ongoing pain. Worked with physical therapy. Likely will need SNF placement to continue nonweightbearing status. 01/26 Patient evaluated at bedside says pain is definitely still present under more control. Also reports some difficulty sleeping will try the night. Otherwise no changes. Will likely need SNF placement on discharge. Vitals/I&O Vitals/I&O: Vital Signs Date Time Temp Pulse Resp B/P (MAP) Pulse Ox O2 Delivery O2 Flow Rate FiO2 01/26/21 08:00 Room Air 01/26/21 08:00 16 01/26/21 07:15 98.5 84 142/68 (92) 91 98.5 I & O 01/25/21 01/25/21 01/26/21 15:00 23:00 07:00 Intake Total 540 ml 420 ml 2880 ml Balance 540 ml 420 ml 2880 ml Physical Exam General: Alert, Oriented X3, Cooperative Heart: Regular rate, Normal S1, Normal S2 Lungs: Clear Abdomen: Normal bowel sounds, Soft, No tenderness Extremities: No edema, Normal pulses Skin: No significant lesion Labs Labs: Laboratory Tests Test 01/26/21 03:25 White Blood Count 6.5 x10^3/uL (4.0-11.0) Red Blood Count 3.41 x10^6/uL (3.50-5.40) Hemoglobin 10.4 g/dL (12.0-15.5) Hematocrit 30.8 % (36.0-47.0) Mean Corpuscular Volume 90 fL (79-100) Mean Corpuscular Hemoglobin 31 pg (25-35) Mean Corpuscular Hemoglobin Concent 34 g/dL (31-37) Red Cell Distribution Width 14.8 % (11.5-14.5) Platelet Count 189 x10^3/uL (140-400) Neutrophils (%) (Auto) 67 % (31-73) Lymphocytes (%) (Auto) 20 % (24-48) Monocytes (%) (Auto) 9 % (0-9) Eosinophils (%) (Auto) 3 % (0-3) Basophils (%) (Auto) 1 % (0-3) Neutrophils # (Auto) 4.4 x10^3/uL (1.8-7.7) Lymphocytes # (Auto) 1.3 x10^3/uL (1.0-4.8) Monocytes # (Auto) 0.6 x10^3/uL (0.0-1.1) Eosinophils # (Auto) 0.2 x10^3/uL (0.0-0.7) Basophils # (Auto) 0.0 x10^3/uL (0.0-0.2) Sodium Level 140 mmol/L (136-145) Potassium Level 3.2 mmol/L (3.5-5.1) Chloride Level 106 mmol/L (98-107) Carbon Dioxide Level 27 mmol/L (21-32) Anion Gap 7 (6-14) Blood Urea Nitrogen 6 mg/dL (7-20) Creatinine 0.7 mg/dL (0.6-1.0) Estimated GFR (Cockcroft-Gault) 82.5 Glucose Level 102 mg/dL (70-99) Calcium Level 7.5 mg/dL (8.5-10.1) Magnesium Level 1.8 mg/dL (1.8-2.4) Assessment and Plan Assessmemt and Plan Problems Medical Problems: (1) Fracture dislocation of right ankle joint Status: Acute Mechanical fall Acute right comminuted trimalleolar fracture with dislocation of the tibiotalar joint space, mildly reduced in the ED under sedation History of prediabetes Ortho consult for ORIF --> s/p ORIF PT OT modalities IV and p.o. pain control Diet PT/OT CODE STATUS full Discussed with RN and SW DPOA: Comment Review of Relevant I have reviewed the following items charles (where applicable) has been applied. Justifications for Admission Other Justification Right ankle fracture KYLE HURST MD Jan 26, 2021 10:39
[2021-01-26 11:05] VITALS: BP 146/60
[2021-01-26] MEDS ORDERED: POTASSIUM CHLORIDE 20 MEQ TABLET.ER. PO ONE (14:00)
[2021-01-26 15:00] VITALS: BP 140/75
[2021-01-26] MEDS ORDERED: ZOLPIDEM 5 MG TABLET. PO ONE ×2 (18:00→20:00)
[2021-01-26 19:20] VITALS: BP 150/63
[2021-01-26 23:16] VITALS: BP 138/66
[2021-01-27 03:13] VITALS: BP 136/61
[2021-01-27] MEDS: HYDROcodone/APAP 5/325MG 1 TAB TABLET PO PRN (05:09)
[2021-01-27 07:00] VITALS: BP 128/51
[2021-01-27] MEDS: ASPIRIN 325 MG TABLET PO SCH (08:26)
[2021-01-27] MEDS: SENNOSIDES 8.6 MG TABLET PO PRN (08:26)
[2021-01-27] MEDS: PANTOPRAZOLE IV PUSH 40 MG VIAL. IVP SCH ×2 (08:27→16:27)
[2021-01-27] MEDS: SENNOSIDES/DOCUSATE 8.6/50MG TABLET. PO SCH (08:36)
--- NOTE | 2021-01-27 08:52 | PDOC ---
PROGRESS NOTES Date of Service: DATE: 01/27/21 TIME: 08:52 Chief Complaint Chief Complaint IMPRESSION Fall Operative reduction internal fixation bimalleolar portion of trimalleolar ankle fracture /Surgeon: Kj Follow-up with Dr. Kj Chamorro 10 to 14 days Strict nonweightbearing right lower extremity in the interim History of Present Illness History of Present Illness History obtained from discussion with the ED physician and chart review: 70-year-old female who arrives via EMS after injuring her right ankle. Patient reportedly was chasing her cat when she slipped on some grass and felt her right ankle buckle. Patient states upon evaluating her ankle she noticed it was deformed as well as swollen. Patient also reports a significant pain associated with this injury. Despite this injury, the patient is without injury otherwise. Specifically she denies any injury to her foot or knee. She is awake, alert and in obvious discomfort 01/24 Patient examined at bedside. Underwent surgery yesterday. This morning complaining of some pain but overall doing well. PT OT per Ortho. 01/25 Patient seen at bedside. Is endorsing some ongoing pain. Worked with physical therapy. Likely will need SNF placement to continue nonweightbearing status. 01/26 Patient evaluated at bedside says pain is definitely still present under more control. Also reports some difficulty sleeping will try the night. Otherwise no changes. Will likely need SNF placement on discharge. 01-27 Follow-up with Dr. Kj Chamorro 10 to 14 days Strict nonweightbearing right lower extremity in the interim SNF placement on discharge. [facility] TODAY D/C PLANNING 24 MIN Vitals Vitals Vital Signs Date Time Temp Pulse Resp B/P (MAP) Pulse Ox O2 Delivery O2 Flow Rate FiO2 01/27/21 07:00 98.1 69 16 128/51 (76) 95 Room Air 98.1 01/27/21 05:09 2.0 Physical Exam General: Alert, Oriented X3, Cooperative, No acute distress Heart: Regular rate, Normal S1, Normal S2 Lungs: Clear Abdomen: Normal bowel sounds, Soft, No tenderness Extremities: No edema, Normal pulses Skin: No significant lesion Labs LABS PATIENT: GISELLA MYLES ACCOUNT: [id number] : 1950 LOCATION: [address] [place] [address] AGE: 70 SEX: F EXAM STATUS: ADM IN ORD. PHYSICIAN: ELIDA PRICE REASON: post reduction PROCEDURE: ANKLE RIGHT 2V Exam: Right ankle 2 views INDICATION: Post reduction TECHNIQUE: Frontal and lateral views of the right ankle Comparisons: Radiograph earlier today FINDINGS: There is redemonstration of trimalleolar fracture of the right ankle with mildly improved alignment. There is improved alignment at the tibiotalar joint space. No other fractures are identified. IMPRESSION: Moderately improved alignment at the trimalleolar fracture/dislocation of the right ankle Electronically signed by: Santiago Savage MD (01/23/2021 7:19 PM) [facility] DICTATED and SIGNED BY: SANTIAGO SAVAGE MD DATE: 01/23/21 [id number] Operative Note Operative Note Operative Note Date of surgery: 01/23/2021 Preoperative diagnosis: Right trimalleolar ankle fracture dislocation Postoperative diagnosis: Same Operative procedure: Operative reduction internal fixation bimalleolar portion of trimalleolar ankle fracture Surgeon: Kj Anesthesia: General Estimated blood loss: 50 cc Complications: None Assessment and Plan Assessmemt and Plan Problems Medical Problems: (1) Fracture dislocation of right ankle joint Status: Acute Comment Review of Relevant I have reviewed the following items charles (where applicable) has been applied. Labs Laboratory Tests Test 01/26/21 03:25 White Blood Count 6.5 x10^3/uL (4.0-11.0) Red Blood Count 3.41 x10^6/uL (3.50-5.40) Hemoglobin 10.4 g/dL (12.0-15.5) Hematocrit 30.8 % (36.0-47.0) Mean Corpuscular Volume 90 fL (79-100) Mean Corpuscular Hemoglobin 31 pg (25-35) Mean Corpuscular Hemoglobin Concent 34 g/dL (31-37) Red Cell Distribution Width 14.8 % (11.5-14.5) Platelet Count 189 x10^3/uL (140-400) Neutrophils (%) (Auto) 67 % (31-73) Lymphocytes (%) (Auto) 20 % (24-48) Monocytes (%) (Auto) 9 % (0-9) Eosinophils (%) (Auto) 3 % (0-3) Basophils (%) (Auto) 1 % (0-3) Neutrophils # (Auto) 4.4 x10^3/uL (1.8-7.7) Lymphocytes # (Auto) 1.3 x10^3/uL (1.0-4.8) Monocytes # (Auto) 0.6 x10^3/uL (0.0-1.1) Eosinophils # (Auto) 0.2 x10^3/uL (0.0-0.7) Basophils # (Auto) 0.0 x10^3/uL (0.0-0.2) Sodium Level 140 mmol/L (136-145) Potassium Level 3.2 mmol/L (3.5-5.1) Chloride Level 106 mmol/L (98-107) Carbon Dioxide Level 27 mmol/L (21-32) Anion Gap 7 (6-14) Blood Urea Nitrogen 6 mg/dL (7-20) Creatinine 0.7 mg/dL (0.6-1.0) Estimated GFR (Cockcroft-Gault) 82.5 Glucose Level 102 mg/dL (70-99) Calcium Level 7.5 mg/dL (8.5-10.1) Magnesium Level 1.8 mg/dL (1.8-2.4) Medications Current Medications Ondansetron HCl (Zofran) 4 mg 1X ONCE IVP Last administered on 01/23/21at 16:35; Start 01/23/21 at 16:30; Stop 01/23/21 at 16:31; Status DC Morphine Sulfate (Morphine Sulfate) 4 mg 1X ONCE IVP Last administered on 01/23/21at 16:35; Start 01/23/21 at 16:30; Stop 01/23/21 at 16:31; Status DC Propofol (Diprivan) 200 mg 1X ONCE IV Last administered on 01/23/21at 17:41; Start 01/23/21 at 17:30; Stop 01/23/21 at 17:31; Status DC Ondansetron HCl (Zofran) 4 mg PRN Q8HRS PRN IVP NAUSEA/VOMITING; Start 01/23/21 at 18:00; Stop 01/23/21 at 20:03; Status DC Morphine Sulfate (Morphine Sulfate) 4 mg PRN Q2HR PRN IVP PAIN Last administered on 01/24/21at 03:08; Start 01/23/21 at 18:00; Stop 01/24/21 at 17:59; Status DC Morphine Sulfate (Morphine Sulfate) 4 mg 1X ONCE IVP Last administered on 01/23/21at 18:03; Start 01/23/21 at 18:00; Stop 01/23/21 at 18:22; Status DC Propofol (Diprivan) 60 mg 1X ONCE IV Last administered on 01/23/21at 18:32; Start 01/23/21 at 18:30; Stop 01/23/21 at 18:35; Status DC Hydromorphone HCl (Dilaudid) 2 mg STK-MED ONCE .ROUTE ; Start 01/23/21 at 18:59; Stop 01/23/21 at 18:59; Status DC Hydromorphone HCl (Dilaudid) 0.5 mg 1X ONCE IVP Last administered on 01/23/21at 19:15; Start 01/23/21 at 19:15; Stop 01/23/21 at 19:16; Status DC Lidocaine HCl (Lidocaine Pf 2% Vial) 5 ml STK-MED ONCE .ROUTE ; Start 01/23/21 at 19:12; Stop 01/23/21 at 19:12; Status DC Propofol 50 ml @ As Directed STK-MED ONCE IV ; Start 01/23/21 at 19:12; Stop 01/23/21 at 19:12; Status DC Succinylcholine Chloride (Anectine) 200 mg STK-MED ONCE .ROUTE ; Start 01/23/21 at 19:12; Stop 01/23/21 at 19:12; Status DC Fentanyl Citrate (Fentanyl 2ml Vial) 100 mcg STK-MED ONCE .ROUTE ; Start 01/23/21 at 19:12; Stop 01/23/21 at 19:13; Status DC Propofol (Diprivan) 200 mg STK-MED ONCE IV ; Start 01/23/21 at 19:12; Stop 01/23/21 at 19:13; Status DC Lidocaine HCl (Lidocaine Pf 2% Vial) 5 ml STK-MED ONCE .ROUTE ; Start 01/23/21 at 19:12; Stop 01/23/21 at 19:13; Status DC Famotidine (Pepcid Vial) 20 mg STK-MED ONCE .ROUTE ; Start 01/23/21 at 19:12; Stop 01/23/21 at 19:13; Status DC Ondansetron HCl (Zofran) 4 mg STK-MED ONCE .ROUTE ; Start 01/23/21 at 19:13; Stop 01/23/21 at 19:13; Status DC Metoclopramide HCl (Reglan Vial) 10 mg STK-MED ONCE .ROUTE ; Start 01/23/21 at 19:13; Stop 01/23/21 at 19:13; Status DC Fentanyl Citrate (Fentanyl 2ml Vial) 25 mcg PRN Q5MIN PRN IVP MILD PAIN 1-3 Last administered on 01/24/21at 00:18; Start 01/23/21 at 19:30; Stop 01/24/21 at 02:00; Status DC Fentanyl Citrate (Fentanyl 2ml Vial) 50 mcg PRN Q5MIN PRN IVP MODERATE PAIN 4-6 Last administered on 01/23/21at 22:18; Start 01/23/21 at 19:30; Stop 01/24/21 at 02:00; Status DC Morphine Sulfate (Morphine Sulfate) 1 mg PRN Q10MIN PRN IVP SEVERE PAIN 7-10; Start 01/23/21 at 19:30; Stop 01/24/21 at 02:00; Status DC Ringer's Solution 1,000 ml @ 30 mls/hr Q24H IV ; Start 01/23/21 at 19:30; Stop 01/24/21 at 07:29; Status DC Hydromorphone HCl (Dilaudid) 0.5 mg PRN Q10MIN PRN IVP SEVERE PAIN 7-10, 2nd CHOICE; Start 01/23/21 at 19:30; Stop 01/24/21 at 02:00; Status DC Prochlorperazine Edisylate (Compazine) 5 mg PACU PRN PRN IVP NAUSEA, MRX1 Last administered on 01/23/21at 22:02; Start 01/23/21 at 19:30; Stop 01/24/21 at 02:00; Status DC Sennosides (Senna) 17.2 mg PRN BID PRN PO CONSTIPATION Last administered on 01/27/21at 08:26; Start 01/23/21 at 19:30 Docusate Sodium (Colace) 100 mg PRN DAILY PRN PO HARD STOOLS; Start 01/23/21 at 19:30 Ondansetron HCl (Zofran) 4 mg PRN Q6HRS PRN IVP NAUSEA/VOMITING (1st Choice) Last administered on 01/24/21at 23:10; Start 01/23/21 at 19:30; Stop 01/25/21 at 12:54; Status DC Dextrose (Dextrose 50%-Water Syringe) 12.5 gm PRN Q15MIN PRN IV SEE COMMENTS; Start 01/23/21 at 19:30; Stop 01/23/21 at 22:36; Status DC Sodium Chloride 1,000 ml @ 100 mls/hr Q10H IV Last administered on 01/26/21at 05:57; Start 01/23/21 at 19:30; Stop 01/26/21 at 10:32; Status DC Acetaminophen (Tylenol) 650 mg PRN Q4HRS PRN PO TEMP OVER 100.4F OR MILD PAIN; Start 01/23/21 at 19:30 Acetaminophen/ Hydrocodone Bitart (Lortab 5/325) 1 tab PRN Q4HRS PRN PO MODERATE PAIN; Start 01/23/21 at 19:30 Acetaminophen/ Hydrocodone Bitart (Lortab 5/325) 2 tab PRN Q4HRS PRN PO SEVERE PAIN Last administered on 01/27/21at 05:09; Start 01/23/21 at 19:30 Morphine Sulfate (Morphine Sulfate) 1 mg PRN Q1HR PRN IV PAIN-SEE COMMENTS Last administered on 01/25/21at 00:35; Start 01/23/21 at 19:30 Morphine Sulfate (Morphine Sulfate) 2 mg PRN Q2HR PRN IVP SEVERE PAIN 7-10 Last administered on 01/23/21at 23:19; Start 01/23/21 at 19:30; Stop 01/24/21 at 19:29; Status DC Prochlorperazine Edisylate (Compazine) 10 mg PRN Q6HRS PRN IV NAUSEA/VOMITING (2nd Choice) Last administered on 01/24/21at 12:53; Start 01/23/21 at 19:30 Bupivacaine HCl (Sensorcaine Mpf 0.5%) 30 ml STK-MED ONCE .ROUTE ; Start 01/23/21 at 19:39; Stop 01/23/21 at 19:39; Status DC Midazolam HCl (Versed) 2 mg STK-MED ONCE .ROUTE ; Start 01/23/21 at 19:42; Stop 01/23/21 at 19:42; Status DC Cefazolin Sodium (Ancef) 1 gm STK-MED ONCE IVP ; Start 01/23/21 at 20:14; Stop 01/23/21 at 20:14; Status DC Cefazolin Sodium (Ancef) 1 gm STK-MED ONCE IVP ; Start 01/23/21 at 20:14; Stop 01/23/21 at 20:14; Status DC Phenylephrine HCl (PHENYLEPHRINE in 0.9% NACL PF) 1 mg STK-MED ONCE IV ; Start 01/23/21 at 20:16; Stop 01/23/21 at 20:16; Status DC Sevoflurane (Ultane) 90 ml STK-MED ONCE IH ; Start 01/23/21 at 21:43; Stop 01/23/21 at 21:43; Status DC Cefazolin Sodium/ Dextrose 50 ml @ 100 mls/hr 1X ONCE IV Last administered on 01/23/21at 20:08; Start 01/23/21 at 22:00; Stop 01/23/21 at 22:29; Status DC Fentanyl Citrate (Fentanyl 2ml Vial) 100 mcg STK-MED ONCE .ROUTE ; Start 01/23/21 at 21:56; Stop 01/23/21 at 21:57; Status DC Prochlorperazine Edisylate (Compazine) 10 mg STK-MED ONCE .ROUTE ; Start 01/23/21 at 21:59; Stop 01/23/21 at 21:59; Status DC Oxycodone HCl (Roxicodone) 5 mg PRN Q3HRS PRN PO BREAKTHROUGH PAIN Last administered on 01/24/21at 18:01; Start 01/23/21 at 22:30 Morphine Sulfate (Morphine Sulfate) 2 mg PRN Q1HR PRN IVP SEVERE PAIN 7-10 Last administered on 01/26/21at 01:03; Start 01/23/21 at 22:30 Fentanyl Citrate (Fentanyl 2ml Vial) 25 mcg PRN Q1HR PRN IVP SEVERE PAIN 7-10 Last administered on 01/24/21at 03:46; Start 01/23/21 at 22:30 Senna/Docusate Sodium (Senna Plus) 1 tab DAILY PO Last administered on 01/26/21at 07:55; Start 01/24/21 at 09:00 Polyethylene Glycol (miraLAX PACKET) 17 gm PRN DAILY PRN PO CONSTIPATION 1ST CHOICE; Start 01/23/21 at 22:30 Ondansetron HCl (Zofran) 4 mg PRN Q4HRS PRN IVP NAUSEA/VOMITING 1ST CHOICE Last administered on 01/26/21at 09:23; Start 01/23/21 at 22:30 Aspirin (Katerina Aspirin) 325 mg DAILYWBKFT PO Last administered on 01/27/21at 08:26; Start 01/24/21 at 08:00 Magnesium Hydroxide (Milk Of Magnesia) 2,400 mg 1X PRN PRN PO CONSTIPATION; Start 01/24/21 at 06:00; Stop 01/25/21 at 05:59; Status DC Bisacodyl (Dulcolax Supp) 10 mg 1X PRN PRN ID CONSTIPATION; Start 01/24/21 at 16:00; Stop 01/25/21 at 15:59; Status DC Dextrose (Dextrose 50%-Water Syringe) 12.5 gm PRN Q15MIN PRN IV SEE COMMENTS; Start 01/23/21 at 22:30 Cefazolin Sodium (Ancef) 1 gm Q6H IVP Last administered on 01/24/21at 17:29; Start 01/24/21 at 04:00; Stop 01/24/21 at 16:01; Status DC Hydromorphone HCl (Dilaudid) 0.4 mg PRN Q2HR PRN IVP SEVERE PAIN 7-10 Last administered on 01/24/21at 23:17; Start 01/24/21 at 06:45 Cefazolin Sodium (Ancef) 2 gm STK-MED ONCE IVP ; Start 01/23/21 at 20:30; Stop 01/24/21 at 08:40; Status DC Pantoprazole Sodium (PROTONIX VIAL for IV PUSH) 40 mg DAILYAC IVP Last administered on 01/24/21at 12:53; Start 01/24/21 at 13:00; Stop 01/24/21 at 17:54; Status DC Sodium Chloride 1,000 ml @ 1,000 mls/hr 1X ONCE IV Last administered on 01/24/21at 14:40; Start 01/24/21 at 14:30; Stop 01/24/21 at 15:29; Status DC Diphenhydramine HCl (Benadryl) 12.5 mg PRN Q4HRS PRN IVP ALLERGIES Last administered on 01/24/21at 14:37; Start 01/24/21 at 14:30 Lorazepam (Ativan Inj) 2 mg PRN Q4HRS PRN IVP ANXIETY / AGITATION Last administered on 01/25/21at 01:02; Start 01/24/21 at 14:30 Pantoprazole Sodium (PROTONIX VIAL for IV PUSH) 40 mg BIDAC IVP Last administered on 01/27/21at 08:27; Start 01/24/21 at 21:00 Zolpidem Tartrate (Ambien) 5 mg PRN QHS ONCE PO ; Start 01/26/21 at 18:00; Stop 01/26/21 at 16:37; Status DC Potassium Chloride (Klor-Con) 40 meq 1X ONCE PO Last administered on 01/26/21at 16:21; Start 01/26/21 at 14:00; Stop 01/26/21 at 14:01; Status DC Zolpidem Tartrate (Ambien) 5 mg PRN QHS ONCE PO Last administered on 01/26/21at 20:52; Start 01/26/21 at 20:00; Stop 01/26/21 at 20:01; Status DC Active Scripts Active Reported Estradiol 1 Each Patch.tdwk 1 Patch TD WEEKLY Pantoprazole Sodium 40 Mg Tablet. 1 Tab PO BID Vitals/I & O Vital Sign - Last 24 Hours 01/26/21 01/26/21 01/26/21 01/26/21 11:05 15:00 19:20 19:45 Temp 98.0 98.7 98.1 98.0 98.7 98.1 Pulse 76 68 84 Resp 18 18 18 B/P (MAP) 146/60 (88) 140/75 (96) 150/63 (92) Pulse Ox 95 96 96 O2 Delivery Room Air Room Air Room Air Room Air 01/26/21 01/27/21 01/27/21 01/27/21 23:16 03:13 05:09 05:39 Temp 98.0 98.5 98.0 98.5 Pulse 85 89 Resp 18 18 16 20 B/P (MAP) 138/66 (90) 136/61 (86) Pulse Ox 94 94 94 O2 Delivery Room Air Room Air Room Air Room Air O2 Flow Rate 2.0 01/27/21 07:00 Temp 98.1 98.1 Pulse 69 Resp 16 B/P (MAP) 128/51 (76) Pulse Ox 95 O2 Delivery Room Air Intake and Output 01/26/21 01/26/21 01/27/21 15:00 23:00 07:00 Intake Total 200 ml 480 ml 480 ml Output Total 300 ml Balance 200 ml 180 ml 480 ml Justicifation of Admission Dx: Justifications for Admission: Justification of Admission Dx: N/A JOBY CM MD Jan 27, 2021 08:52
--- NOTE | 2021-01-27 10:05 | NUR ---
PCR swab at 0915. Taken to lab at 0940
[2021-01-27 10:54] VITALS: BP 126/46
[2021-01-27 10:57] LABS: CALCIUM 8.3 mg/dL (8.5-10.1); CREATININE 0.7 mg/dL (0.6-1.0); GFR 82.5; POTASSIUM 3.6 mmol/L (3.5-5.1)
--- NOTE | 2021-01-27 13:17 | PDOC3 ---
Discharge Summary Date of Admission: Jan 23, 2021 Date of Discharge: Jan 27, 2021 Follow-Up: 1-2 days Admitting Diagnosis comment: Chief Complaint Chief Complaint COMPLICATIONS NONE D/C CONDITION GOOD CONSUKTS DR CALIX transfer DX Fall Operative reduction internal fixation bimalleolar portion of trimalleolar ankle fracture /Surgeon: Kj Follow-up with Dr. Kj Chamorro 10 to 14 days Strict nonweightbearing right lower extremity in the interim History of Present Illness History of Present Illness History obtained from discussion with the ED physician and chart review: 70-year-old female who arrives via EMS after injuring her right ankle. Patient reportedly was chasing her cat when she slipped on some grass and felt her right ankle buckle. Patient states upon evaluating her ankle she noticed it was deformed as well as swollen. Patient also reports a significant pain associated with this injury. Despite this injury, the patient is without injury otherwise. Specifically she denies any injury to her foot or knee. She is awake, alert and in obvious discomfort HOSPITAL COURSE 01/24 Patient examined at bedside. Underwent surgery yesterday. This morning complaining of some pain but overall doing well. PT OT per Ortho. 01/25 Patient seen at bedside. Is endorsing some ongoing pain. Worked with physical therapy. Likely will need SNF placement to continue nonweightbearing status. 01/26 Patient evaluated at bedside says pain is definitely still present under more control. Also reports some difficulty sleeping will try the night. Otherwise n o changes. Will likely need SNF placement on discharge. 01-27 Follow-up with Dr. Kj Chamorro 10 to 14 days Strict nonweightbearing right lower extremity in the interim SNF placement on discharge. [facility] TODAY D/C PLANNING 24 MIN Vitals Vitals Vital Signs Date Time Temp Pulse Resp B/P (MAP) Pulse Ox O2 Delivery O2 Flow Rate FiO2 01/27/21 07:00 98.1 69 16 128/51 (76) 95 Room Air 98.1 01/27/21 05:09 2.0 Physical Exam General: Alert, Oriented X3, Cooperative, No acute distress Heart: Regular rate, Normal S1, Normal S2 Lungs: Clear Abdomen: Normal bowel sounds, Soft, No tenderness Extremities: No edema, Normal pulses Skin: No significant lesion Labs LABS PATIENT: GISELLA MYLES ACCOUNT: [id number] : 1950 LOCATION: [address] [place] [address] AGE: 70 SEX: F EXAM STATUS: ADM IN ORD. PHYSICIAN: ELIDA PRICE REASON: post reduction PROCEDURE: ANKLE RIGHT 2V Exam: Right ankle 2 views INDICATION: Post reduction TECHNIQUE: Frontal and lateral views of the right ankle Comparisons: Radiograph earlier today FINDINGS: There is redemonstration of trimalleolar fracture of the right ankle with mildly improved alignment. There is improved alignment at the tibiotalar joint space. No other fractures are identified. IMPRESSION: Moderately improved alignment at the trimalleolar fracture/dislocation of the right ankle Electronically signed by: Santiago Savage MD (01/23/2021 7:19 PM) [facility] DICTATED and SIGNED BY: SANTIAGO SAVAGE MD DATE: 01/23/21 [id number] Operative Note Operative Note Operative Note Date of surgery: 01/23/2021 Preoperative diagnosis: Right trimalleolar ankle fracture dislocation Postoperative diagnosis: Same Operative procedure: Operative reduction internal fixation bimalleolar portion of trimalleolar ankle fracture Surgeon: Kj Anesthesia: General Estimated blood loss: 50 cc Complications: None Assessment and Plan Assessmemt and Plan Problems Medical Problems: (1) Fracture dislocation of right ankle joint Status: Acute Comment Review of Relevant I have reviewed the following items charles (where applicable) has been applied. Labs Laboratory Tests Test 01/26/21 03:25 White Blood Count 6.5 x10^3/uL (4.0-11.0) Red Blood Count 3.41 x10^6/uL (3.50-5.40) Hemoglobin 10.4 g/dL (12.0-15.5) Hematocrit 30.8 % (36.0-47.0) Mean Corpuscular Volume 90 fL (79-100) Mean Corpuscular Hemoglobin 31 pg (25-35) Mean Corpuscular Hemoglobin Concent 34 g/dL (31-37) Red Cell Distribution Width 14.8 % (11.5-14.5) Platelet Count 189 x10^3/uL (140-400) Neutrophils (%) (Auto) 67 % (31-73) Lymphocytes (%) (Auto) 20 % (24-48) Monocytes (%) (Auto) 9 % (0-9) Eosinophils (%) (Auto) 3 % (0-3) Basophils (%) (Auto) 1 % (0-3) Neutrophils # (Auto) 4.4 x10^3/uL (1.8-7.7) Lymphocytes # (Auto) 1.3 x10^3/uL (1.0-4.8) Monocytes # (Auto) 0.6 x10^3/uL (0.0-1.1) Eosinophils # (Auto) 0.2 x10^3/uL (0.0-0.7) Basophils # (Auto) 0.0 x10^3/uL (0.0-0.2) Sodium Level 140 mmol/L (136-145) Potassium Level 3.2 mmol/L (3.5-5.1) Chloride Level 106 mmol/L (98-107) Carbon Dioxide Level 27 mmol/L (21-32) Anion Gap 7 (6-14) Blood Urea Nitrogen 6 mg/dL (7-20) Creatinine 0.7 mg/dL (0.6-1.0) Estimated GFR (Cockcroft-Gault) 82.5 Glucose Level 102 mg/dL (70-99) Calcium Level 7.5 mg/dL (8.5-10.1) Magnesium Level 1.8 mg/dL (1.8-2.4) Medications Current Medications Ondansetron HCl (Zofran) 4 mg 1X ONCE IVP Last administered on 01/23/21at 16:35; Start 01/23/21 at 16:30; Stop 01/23/21 at 16:31; Status DC Morphine Sulfate (Morphine Sulfate) 4 mg 1X ONCE IVP Last administered on 01/23/21at 16:35; Start 01/23/21 at 16:30; Stop 01/23/21 at 16:31; Status DC Propofol (Diprivan) 200 mg 1X ONCE IV Last administered on 01/23/21at 17:41; Start 01/23/21 at 17:30; Stop 01/23/21 at 17:31; Status DC Ondansetron HCl (Zofran) 4 mg PRN Q8HRS PRN IVP NAUSEA/VOMITING; Start 01/23/21 at 18:00; Stop 01/23/21 at 20:03; Status DC Morphine Sulfate (Morphine Sulfate) 4 mg PRN Q2HR PRN IVP PAIN Last administered on 01/24/21at 03:08; Start 01/23/21 at 18:00; Stop 01/24/21 at 17:59; Status DC Morphine Sulfate (Morphine Sulfate) 4 mg 1X ONCE IVP Last administered on 01/23/21at 18:03; Start 01/23/21 at 18:00; Stop 01/23/21 at 18:22; Status DC Propofol (Diprivan) 60 mg 1X ONCE IV Last administered on 01/23/21at 18:32; Start 01/23/21 at 18:30; Stop 01/23/21 at 18:35; Status DC Hydromorphone HCl (Dilaudid) 2 mg STK-MED ONCE .ROUTE ; Start 01/23/21 at 18:59; Stop 01/23/21 at 18:59; Status DC Hydromorphone HCl (Dilaudid) 0.5 mg 1X ONCE IVP Last administered on 01/23/21at 19:15; Start 01/23/21 at 19:15; Stop 01/23/21 at 19:16; Status DC Lidocaine HCl (Lidocaine Pf 2% Vial) 5 ml STK-MED ONCE .ROUTE ; Start 01/23/21 at 19:12; Stop 01/23/21 at 19:12; Status DC Propofol 50 ml @ As Directed STK-MED ONCE IV ; Start 01/23/21 at 19:12; Stop 01/23/21 at 19:12; Status DC Succinylcholine Chloride (Anectine) 200 mg STK-MED ONCE .ROUTE ; Start 01/23/21 at 19:12; Stop 01/23/21 at 19:12; Status DC Fentanyl Citrate (Fentanyl 2ml Vial) 100 mcg STK-MED ONCE .ROUTE ; Start 01/23/21 at 19:12; Stop 01/23/21 at 19:13; Status DC Propofol (Diprivan) 200 mg STK-MED ONCE IV ; Start 01/23/21 at 19:12; Stop 01/23/21 at 19:13; Status DC Lidocaine HCl (Lidocaine Pf 2% Vial) 5 ml STK-MED ONCE .ROUTE ; Start 01/23/21 at 19:12; Stop 01/23/21 at 19:13; Status DC Famotidine (Pepcid Vial) 20 mg STK-MED ONCE .ROUTE ; Start 01/23/21 at 19:12; Stop 01/23/21 at 19:13; Status DC Ondansetron HCl (Zofran) 4 mg STK-MED ONCE .ROUTE ; Start 01/23/21 at 19:13; St op 01/23/21 at 19:13; Status DC Metoclopramide HCl (Reglan Vial) 10 mg STK-MED ONCE .ROUTE ; Start 01/23/21 at 19:13; Stop 01/23/21 at 19:13; Status DC Fentanyl Citrate (Fentanyl 2ml Vial) 25 mcg PRN Q5MIN PRN IVP MILD PAIN 1-3 Last administered on 01/24/21at 00:18; Start 01/23/21 at 19:30; Stop 01/24/21 at 02:00; Status DC Fentanyl Citrate (Fentanyl 2ml Vial) 50 mcg PRN Q5MIN PRN IVP MODERATE PAIN 4-6 Last administered on 01/23/21at 22:18; Start 01/23/21 at 19:30; Stop 01/24/21 at 02:00; Status DC Morphine Sulfate (Morphine Sulfate) 1 mg PRN Q10MIN PRN IVP SEVERE PAIN 7-10; Start 01/23/21 at 19:30; Stop 01/24/21 at 02:00; Status DC Ringer's Solution 1,000 ml @ 30 mls/hr Q24H IV ; Start 01/23/21 at 19:30; Stop 01/24/21 at 07:29; Status DC Hydromorphone HCl (Dilaudid) 0.5 mg PRN Q10MIN PRN IVP SEVERE PAIN 7-10, 2nd CHOICE; Start 01/23/21 at 19:30; Stop 01/24/21 at 02:00; Status DC Prochlorperazine Edisylate (Compazine) 5 mg PACU PRN PRN IVP NAUSEA, MRX1 Last administered on 01/23/21at 22:02; Start 01/23/21 at 19:30; Stop 01/24/21 at 02:00; Status DC Sennosides (Senna) 17.2 mg PRN BID PRN PO CONSTIPATION Last administered on 01/27/21at 08:26; Start 01/23/21 at 19:30 Docusate Sodium (Colace) 100 mg PRN DAILY PRN PO HARD STOOLS; Start 01/23/21 at 19:30 Ondansetron HCl (Zofran) 4 mg PRN Q6HRS PRN IVP NAUSEA/VOMITING (1st Choice) Last administered on 01/24/21at 23:10; Start 01/23/21 at 19:30; Stop 01/25/21 at 12:54; Status DC Dextrose (Dextrose 50%-Water Syringe) 12.5 gm PRN Q15MIN PRN IV SEE COMMENTS; Start 01/23/21 at 19:30; Stop 01/23/21 at 22:36; Status DC Sodium Chloride 1,000 ml @ 100 mls/hr Q10H IV Last administered on 01/26/21at 05:57; Start 01/23/21 at 19:30; Stop 01/26/21 at 10:32; Status DC Acetaminophen (Tylenol) 650 mg PRN Q4HRS PRN PO TEMP OVER 100.4F OR MILD PAIN; Start 01/23/21 at 19:30 Acetaminophen/ Hydrocodone Bitart (Lortab 5/325) 1 tab PRN Q4HRS PRN PO MO DERATE PAIN; Start 01/23/21 at 19:30 Acetaminophen/ Hydrocodone Bitart (Lortab 5/325) 2 tab PRN Q4HRS PRN PO SEVERE PAIN Last administered on 01/27/21at 05:09; Start 01/23/21 at 19:30 Morphine Sulfate (Morphine Sulfate) 1 mg PRN Q1HR PRN IV PAIN-SEE COMMENTS Last administered on 01/25/21at 00:35; Start 01/23/21 at 19:30 Morphine Sulfate (Morphine Sulfate) 2 mg PRN Q2HR PRN IVP SEVERE PAIN 7-10 Last administered on 01/23/21at 23:19; Start 01/23/21 at 19:30; Stop 01/24/21 at 19:29; Status DC Prochlorperazine Edisylate (Compazine) 10 mg PRN Q6HRS PRN IV NAUSEA/VOMITING (2nd Choice) Last administered on 01/24/21at 12:53; Start 01/23/21 at 19:30 Bupivacaine HCl (Sensorcaine Mpf 0.5%) 30 ml STK-MED ONCE .ROUTE ; Start 01/23/21 at 19:39; Stop 01/23/21 at 19:39; Status DC Midazolam HCl (Versed) 2 mg STK-MED ONCE .ROUTE ; Start 01/23/21 at 19:42; Stop 01/23/21 at 19:42; Status DC Cefazolin Sodium (Ancef) 1 gm STK-MED ONCE IVP ; Start 01/23/21 at 20:14; Stop 01/23/21 at 20:14; Status DC Cefazolin Sodium (Ancef) 1 gm STK-MED ONCE IVP ; Start 01/23/21 at 20:14; Stop 01/23/21 at 20:14; Status DC Phenylephrine HCl (PHENYLEPHRINE in 0.9% NACL PF) 1 mg STK-MED ONCE IV ; Start 01/23/21 at 20:16; Stop 01/23/21 at 20:16; Status DC Sevoflurane (Ultane) 90 ml STK-MED ONCE IH ; Start 01/23/21 at 21:43; Stop 01/23/21 at 21:43; Status DC Cefazolin Sodium/ Dextrose 50 ml @ 100 mls/hr 1X ONCE IV Last administered on 01/23/21at 20:08; Start 01/23/21 at 22:00; Stop 01/23/21 at 22:29; Status DC Fentanyl Citrate (Fentanyl 2ml Vial) 100 mcg STK-MED ONCE .ROUTE ; Start 01/23/21 at 21:56; Stop 01/23/21 at 21:57; Status DC Prochlorperazine Edisylate (Compazine) 10 mg STK-MED ONCE .ROUTE ; Start 01/23/21 at 21:59; Stop 01/23/21 at 21:59; Status DC Oxycodone HCl (Roxicodone) 5 mg PRN Q3HRS PRN PO BREAKTHROUGH PAIN Last administered on 01/24/21at 18:01; Start 01/23/21 at 22:30 Morphine Sulfate (Morphine Sulfate) 2 mg PRN Q1HR PRN IVP SEVERE PAIN 7-10 Last administered on 01/26/21at 01:03; Start 01/23/21 at 22:30 Fentanyl Citrate (Fentanyl 2ml Vial) 25 mcg PRN Q1HR PRN IVP SEVERE PAIN 7-10 Last administered on 01/24/21at 03:46; Start 01/23/21 at 22:30 Senna/Docusate Sodium (Senna Plus) 1 tab DAILY PO Last administered on 01/26/21at 07:55; Start 01/24/21 at 09:00 Polyethylene Glycol (miraLAX PACKET) 17 gm PRN DAILY PRN PO CONSTIPATION 1ST CHOICE; Start 01/23/21 at 22:30 Ondansetron HCl (Zofran) 4 mg PRN Q4HRS PRN IVP NAUSEA/VOMITING 1ST CHOICE Last administered on 01/26/21at 09:23; Start 01/23/21 at 22:30 Aspirin (Katerina Aspirin) 325 mg DAILYWBKFT PO Last administered on 01/27/21at 08:26; Start 01/24/21 at 08:00 Magnesium Hydroxide (Milk Of Magnesia) 2,400 mg 1X PRN PRN PO CONSTIPATION; Start 01/24/21 at 06:00; Stop 01/25/21 at 05:59; Status DC Bisacodyl (Dulcolax Supp) 10 mg 1X PRN PRN [place] CONSTIPATION; Start 01/24/21 at 16:00; Stop 01/25/21 at 15:59; Status DC Dextrose (Dextrose 50%-Water Syringe) 12.5 gm PRN Q15MIN PRN IV SEE COMMENTS; Start 01/23/21 at 22:30 Cefazolin Sodium (Ancef) 1 gm Q6H IVP Last administered on 01/24/21at 17:29; Start 01/24/21 at 04:00; Stop 01/24/21 at 16:01; Status DC Hydromorphone HCl (Dilaudid) 0.4 mg PRN Q2HR PRN IVP SEVERE PAIN 7-10 Last administered on 01/24/21at 23:17; Start 01/24/21 at 06:45 Cefazolin Sodium (Ancef) 2 gm STK-MED ONCE IVP ; Start 01/23/21 at 20:30; Stop 01/24/21 at 08:40; Status DC Pantoprazole Sodium (PROTONIX VIAL for IV PUSH) 40 mg DAILYAC IVP Last administered on 01/24/21at 12:53; Start 01/24/21 at 13:00; Stop 01/24/21 at 17:54; Status DC Sodium Chloride 1,000 ml @ 1,000 mls/hr 1X ONCE IV Last administered on 01/24/21at 14:40; Start 01/24/21 at 14:30; Stop 01/24/21 at 15:29; Status DC Diphenhydramine HCl (Benadryl) 12.5 mg PRN Q4HRS PRN IVP ALLERGIES Last administered on 01/24/21at 14:37; Start 01/24/21 at 14:30 Lorazepam (Ativan Inj) 2 mg PRN Q4HRS PRN IVP ANXIETY / AGITATION Last administered on 01/25/21at 01:02; Start 01/24/21 at 14:30 Pantoprazole Sodium (PROTONIX VIAL for IV PUSH) 40 mg BIDAC IVP Last administered on 01/27/21at 08:27; Start 01/24/21 at 21:00 Zolpidem Tartrate (Ambien) 5 mg PRN QHS ONCE PO ; Start 01/26/21 at 18:00; Stop 01/26/21 at 16:37; Status DC Potassium Chloride (Klor-Con) 40 meq 1X ONCE PO Last administered on 01/26/21at 16:21; Start 01/26/21 at 14:00; Stop 01/26/21 at 14:01; Status DC Zolpidem Tartrate (Ambien) 5 mg PRN QHS ONCE PO Last administered on 01/26/21at 20:52; Start 01/26/21 at 20:00; Stop 01/26/21 at 20:01; Status DC Active Scripts Active Reported Estradiol 1 Each Patch.tdwk 1 Patch TD WEEKLY Pantoprazole Sodium 40 Mg Tablet.dr 1 Tab PO BID Vitals/I & O FINAL DIAGNOSIS Problems Medical Problems: (1) Fracture dislocation of right ankle joint Status: Acute Brief Hospital Course Ms. Myles is a 70 old [sex] who presented with [ FX R ANKLE] CONDITION AT DISCHARGE: Improved Discharge Medications Current Medications Ondansetron HCl (Zofran) 4 mg 1X ONCE IVP Last administered on 01/23/21at 16:35; Start 01/23/21 at 16:30; Stop 01/23/21 at 16:31; Status DC Morphine Sulfate (Morphine Sulfate) 4 mg 1X ONCE IVP Last administered on 01/23/21at 16:35; Start 01/23/21 at 16:30; Stop 01/23/21 at 16:31; Status DC Propofol (Diprivan) 200 mg 1X ONCE IV Last administered on 01/23/21at 17:41; Start 01/23/21 at 17:30; Stop 01/23/21 at 17:31; Status DC Ondansetron HCl (Zofran) 4 mg PRN Q8HRS PRN IVP NAUSEA/VOMITING; Start 01/23/21 at 18:00; Stop 01/23/21 at 20:03; Status DC Morphine Sulfate (Morphine Sulfate) 4 mg PRN Q2HR PRN IVP PAIN Last administered on 01/24/21at 03:08; Start 01/23/21 at 18:00; Stop 01/24/21 at 17:59; Status DC Morphine Sulfate (Morphine Sulfate) 4 mg 1X ONCE IVP Last administered on 01/23/21at 18:03; Start 01/23/21 at 18:00; Stop 01/23/21 at 18:22; Status DC Propofol (Diprivan) 60 mg 1X ONCE IV Last administered on 01/23/21at 18:32; Start 01/23/21 at 18:30; Stop 01/23/21 at 18:35; Status DC Hydromorphone HCl (Dilaudid) 2 mg STK-MED ONCE .ROUTE ; Start 01/23/21 at 18:59; Stop 01/23/21 at 18:59; Status DC Hydromorphone HCl (Dilaudid) 0.5 mg 1X ONCE IVP Last administered on 01/23/21at 19:15; Start 01/23/21 at 19:15; Stop 01/23/21 at 19:16; Status DC Lidocaine HCl (Lidocaine Pf 2% Vial) 5 ml STK-MED ONCE .ROUTE ; Start 01/23/21 at 19:12; Stop 01/23/21 at 19:12; Status DC Propofol 50 ml @ As Directed STK-MED ONCE IV ; Start 01/23/21 at 19:12; Stop 01/23/21 at 19:12; Status DC Succinylcholine Chloride (Anectine) 200 mg STK-MED ONCE .ROUTE ; Start 01/23/21 at 19:12; Stop 01/23/21 at 19:12; Status DC Fentanyl Citrate (Fentanyl 2ml Vial) 100 mcg STK-MED ONCE .ROUTE ; Start 01/23/21 at 19:12; Stop 01/23/21 at 19:13; Status DC Propofol (Diprivan) 200 mg STK-MED ONCE IV ; Start 01/23/21 at 19:12; Stop 01/23/21 at 19:13; Status DC Lidocaine HCl (Lidocaine Pf 2% Vial) 5 ml STK-MED ONCE .ROUTE ; Start 01/23/21 at 19:12; Stop 01/23/21 at 19:13; Status DC Famotidine (Pepcid Vial) 20 mg STK-MED ONCE .ROUTE ; Start 01/23/21 at 19:12; Stop 01/23/21 at 19:13; Status DC Ondansetron HCl (Zofran) 4 mg STK-MED ONCE .ROUTE ; Start 01/23/21 at 19:13; Stop 01/23/21 at 19:13; Status DC Metoclopramide HCl (Reglan Vial) 10 mg STK-MED ONCE .ROUTE ; Start 01/23/21 at 19:13; Stop 01/23/21 at 19:13; Status DC Fentanyl Citrate (Fentanyl 2ml Vial) 25 mcg PRN Q5MIN PRN IVP MILD PAIN 1-3 Last administered on 01/24/21at 00:18; Start 01/23/21 at 19:30; Stop 01/24/21 at 02:00; Status DC Fentanyl Citrate (Fentanyl 2ml Vial) 50 mcg PRN Q5MIN PRN IVP MODERATE PAIN 4-6 Last administered on 01/23/21at 22:18; Start 01/23/21 at 19:30; Stop 01/24/21 at 02:00; Status DC Morphine Sulfate (Morphine Sulfate) 1 mg PRN Q10MIN PRN IVP SEVERE PAIN 7-10; Start 01/23/21 at 19:30; Stop 01/24/21 at 02:00; Status DC Ringer's Solution 1,000 ml @ 30 mls/hr Q24H IV ; Start 01/23/21 at 19:30; Stop 01/24/21 at 07:29; Status DC Hydromorphone HCl (Dilaudid) 0.5 mg PRN Q10MIN PRN IVP SEVERE PAIN 7-10, 2nd CHOICE; Start 01/23/21 at 19:30; Stop 01/24/21 at 02:00; Status DC Prochlorperazine Edisylate (Compazine) 5 mg PACU PRN PRN IVP NAUSEA, MRX1 Last administered on 01/23/21at 22:02; Start 01/23/21 at 19:30; Stop 01/24/21 at 02:00; Status DC Sennosides (Senna) 17.2 mg PRN BID PRN PO CONSTIPATION Last administered on 01/27/21at 08:26; Start 01/23/21 at 19:30 Docusate Sodium (Colace) 100 mg PRN DAILY PRN PO HARD STOOLS; Start 01/23/21 at 19:30 Ondansetron HCl (Zofran) 4 mg PRN Q6HRS PRN IVP NAUSEA/VOMITING (1st Choice) Last administered on 01/24/21at 23:10; Start 01/23/21 at 19:30; Stop 01/25/21 at 12:54; Status DC Dextrose (Dextrose 50%-Water Syringe) 12.5 gm PRN Q15MIN PRN IV SEE COMMENTS; Start 01/23/21 at 19:30; Stop 01/23/21 at 22:36; Status DC Sodium Chloride 1,000 ml @ 100 mls/hr Q10H IV Last administered on 01/26/21at 05:57; Start 01/23/21 at 19:30; Stop 01/26/21 at 10:32; Status DC Acetaminophen (Tylenol) 650 mg PRN Q4HRS PRN PO TEMP OVER 100.4F OR MILD PAIN; Start 01/23/21 at 19:30 Acetaminophen/ Hydrocodone Bitart (Lortab 5/325) 1 tab PRN Q4HRS PRN PO MODERATE PAIN; Start 01/23/21 at 19:30; Stop 01/27/21 at 10:47; Status DC Acetaminophen/ Hydrocodone Bitart (Lortab 5/325) 2 tab PRN Q4HRS PRN PO SEVERE PAIN Last administered on 01/27/21at 05:09; Start 01/23/21 at 19:30; Stop 01/27/21 at 10:47; Status DC Morphine Sulfate (Morphine Sulfate) 1 mg PRN Q1HR PRN IV PAIN-SEE COMMENTS Last administered on 01/25/21at 00:35; Start 01/23/21 at 19:30; Stop 01/27/21 at 10:46; Status DC Morphine Sulfate (Morphine Sulfate) 2 mg PRN Q2HR PRN IVP SEVERE PAIN 7-10 Last administered on 01/23/21at 23:19; Start 01/23/21 at 19:30; Stop 01/24/21 at 19:29; Status DC Prochlorperazine Edisylate (Compazine) 10 mg PRN Q6HRS PRN IV NAUSEA/VOMITING (2nd Choice) Last administered on 01/24/21at 12:53; Start 01/23/21 at 19:30 Bupivacaine HCl (Sensorcaine Mpf 0.5%) 30 ml STK-MED ONCE .ROUTE ; Start 01/23/21 at 19:39; Stop 01/23/21 at 19:39; Status DC Midazolam HCl (Versed) 2 mg STK-MED ONCE .ROUTE ; Start 01/23/21 at 19:42; Stop 01/23/21 at 19:42; Status DC Cefazolin Sodium (Ancef) 1 gm STK-MED ONCE IVP ; Start 01/23/21 at 20:14; Stop 01/23/21 at 20:14; Status DC Cefazolin Sodium (Ancef) 1 gm STK-MED ONCE IVP ; Start 01/23/21 at 20:14; Stop 01/23/21 at 20:14; Status DC Phenylephrine HCl (PHENYLEPHRINE in 0.9% NACL PF) 1 mg STK-MED ONCE IV ; Start 01/23/21 at 20:16; Stop 01/23/21 at 20:16; Status DC Sevoflurane (Ultane) 90 ml STK-MED ONCE IH ; Start 01/23/21 at 21:43; Stop 01/23/21 at 21:43; Status DC Cefazolin Sodium/ Dextrose 50 ml @ 100 mls/hr 1X ONCE IV Last administered on 01/23/21at 20:08; Start 01/23/21 at 22:00; Stop 01/23/21 at 22:29; Status DC Fentanyl Citrate (Fentanyl 2ml Vial) 100 mcg STK-MED ONCE .ROUTE ; Start 01/02 07/21 at 21:56; Stop 01/23/21 at 21:57; Status DC Prochlorperazine Edisylate (Compazine) 10 mg STK-MED ONCE .ROUTE ; Start 01/23 at 21:59; Stop 01/23/21 at 21:59; Status DC Oxycodone HCl (Roxicodone) 5 mg PRN Q3HRS PRN PO BREAKTHROUGH PAIN Last admini stered on 01/24/21at 18:01; Start 01/23/21 at 22:30 Morphine Sulfate (Morphine Sulfate) 2 mg PRN Q1HR PRN IVP SEVERE PAIN 7-10 Last administered on 01/26/21at 01:03; Start 01/23/21 at 22:30 Fentanyl Citrate (Fentanyl 2ml Vial) 25 mcg PRN Q1HR PRN IVP SEVERE PAIN 7-10 Last administered on 01/24/21at 03:46; Start 01/23/21 at 22:30 Senna/Docusate Sodium (Senna Plus) 1 tab DAILY PO Last administered on 01/26/21at 07:55; Start 01/24/21 at 09:00 Polyethylene Glycol (miraLAX PACKET) 17 gm PRN DAILY PRN PO CONSTIPATION 1ST CHOICE; Start 01/23/21 at 22:30 Ondansetron HCl (Zofran) 4 mg PRN Q4HRS PRN IVP NAUSEA/VOMITING 1ST CHOICE Last administered on 01/26/21at 09:23; Start 01/23/21 at 22:30 Aspirin (Katerina Aspirin) 325 mg DAILYWBKFT PO Last administered on 01/27/21at 08:26; Start 01/24/21 at 08:00 Magnesium Hydroxide (Milk Of Magnesia) 2,400 mg 1X PRN PRN PO CONSTIPATION; Start 01/24/21 at 06:00; Stop 01/25/21 at 05:59; Status DC Bisacodyl (Dulcolax Supp) 10 mg 1X PRN PRN [place] CONSTIPATION; Start 01/24/21 at 16:00; Stop 01/25/21 at 15:59; Status DC Dextrose (Dextrose 50%-Water Syringe) 12.5 gm PRN Q15MIN PRN IV SEE COMMENTS; Start 01/23/21 at 22:30 Cefazolin Sodium (Ancef) 1 gm Q6H IVP Last administered on 01/24/21at 17:29; Start 01/24/21 at 04:00; Stop 01/24/21 at 16:01; Status DC Hydromorphone HCl (Dilaudid) 0.4 mg PRN Q2HR PRN IVP BREAKTHROUGH PAIN Last administered on 01/24/21at 23:17; Start 01/24/21 at 06:45 Cefazolin Sodium (Ancef) 2 gm STK-MED ONCE IVP ; Start 01/23/21 at 20:30; Stop 01/24/21 at 08:40; Status DC Pantoprazole Sodium (PROTONIX VIAL for IV PUSH) 40 mg DAILYAC IVP Last administered on 01/24/21at 12:53; Start 01/24/21 at 13:00; Stop 01/24/21 at 17:54; Status DC Sodium Chloride 1,000 ml @ 1,000 mls/hr 1X ONCE IV Last administered on 01/24/21at 14:40; Start 01/24/21 at 14:30; Stop 01/24/21 at 15:29; Status DC Diphenhydramine HCl (Benadryl) 12.5 mg PRN Q4HRS PRN IVP ALLERGIES Last administered on 01/24/21at 14:37; Start 01/24/21 at 14:30 Lorazepam (Ativan Inj) 2 mg PRN Q4HRS PRN IVP ANXIETY / AGITATION Last administered on 01/25/21at 01:02; Start 01/24/21 at 14:30 Pantoprazole Sodium (PROTONIX VIAL for IV PUSH) 40 mg BIDAC IVP Last administered on 01/27/21at 08:27; Start 01/24/21 at 21:00 Zolpidem Tartrate (Ambien) 5 mg PRN QHS ONCE PO ; Start 01/26/21 at 18:00; Stop 01/26/21 at 16:37; Status DC Potassium Chloride (Klor-Con) 40 meq 1X ONCE PO Last administered on 01/26/21at 16:21; Start 01/26/21 at 14:00; Stop 01/26/21 at 14:01; Status DC Zolpidem Tartrate (Ambien) 5 mg PRN QHS ONCE PO Last administered on 01/26/21at 20:52; Start 01/26/21 at 20:00; Stop 01/26/21 at 20:01; Status DC Active Scripts Active Reported Estradiol 1 Each Patch.tdwk 1 Patch TD WEEKLY Pantoprazole Sodium 40 Mg Tablet.dr 1 Tab PO BID Vital Signs Vital Signs Date Time Temp Pulse Resp B/P (MAP) Pulse Ox O2 Delivery O2 Flow Rate FiO2 01/27/21 10:54 97.8 67 18 126/46 (72) 100 97.8 01/27/21 08:00 Room Air 01/27/21 05:09 2.0 Labs Laboratory Tests Test 01/26/21 03:25 01/27/21 10:20 White Blood Count 6.5 x10^3/uL (4.0-11.0) Red Blood Count 3.41 x10^6/uL (3.50-5.40) Hemoglobin 10.4 g/dL (12.0-15.5) Hematocrit 30.8 % (36.0-47.0) Mean Corpuscular Volume 90 fL (79-100) Mean Corpuscular Hemoglobin 31 pg (25-35) Mean Corpuscular Hemoglobin Concent 34 g/dL (31-37) Red Cell Distribution Width 14.8 % (11.5-14.5) Platelet Count 189 x10^3/uL (140-400) Neutrophils (%) (Auto) 67 % (31-73) Lymphocytes (%) (Auto) 20 % (24-48) Monocytes (%) (Auto) 9 % (0-9) Eosinophils (%) (Auto) 3 % (0-3) Basophils (%) (Auto) 1 % (0-3) Neutrophils # (Auto) 4.4 x10^3/uL (1.8-7.7) Lymphocytes # (Auto) 1.3 x10^3/uL (1.0-4.8) Monocytes # (Auto) 0.6 x10^3/uL (0.0-1.1) Eosinophils # (Auto) 0.2 x10^3/uL (0.0-0.7) Basophils # (Auto) 0.0 x10^3/uL (0.0-0.2) Sodium Level 140 mmol/L (136-145) 141 mmol/L (136-145) Potassium Level 3.2 mmol/L (3.5-5.1) 3.6 mmol/L (3.5-5.1) Chloride Level 106 mmol/L (98-107) 107 mmol/L (98-107) Carbon Dioxide Level 27 mmol/L (21-32) 28 mmol/L (21-32) Anion Gap 7 (6-14) 6 (6-14) Blood Urea Nitrogen 6 mg/dL (7-20) 5 mg/dL (7-20) Creatinine 0.7 mg/dL (0.6-1.0) 0.7 mg/dL (0.6-1.0) Estimated GFR (Cockcroft-Gault) 82.5 82.5 Glucose Level 102 mg/dL (70-99) 117 mg/dL (70-99) Calcium Level 7.5 mg/dL (8.5-10.1) 8.3 mg/dL (8.5-10.1) Magnesium Level 1.8 mg/dL (1.8-2.4) Laboratory Tests Test 01/27/21 10:20 Sodium Level 141 mmol/L (136-145) Potassium Level 3.6 mmol/L (3.5-5.1) Chloride Level 107 mmol/L (98-107) Carbon Dioxide Level 28 mmol/L (21-32) Anion Gap 6 (6-14) Blood Urea Nitrogen 5 mg/dL (7-20) Creatinine 0.7 mg/dL (0.6-1.0) Estimated GFR (Cockcroft-Gault) 82.5 Glucose Level 117 mg/dL (70-99) Calcium Level 8.3 mg/dL (8.5-10.1) Allergies Allergies Coded Allergies Type Severity Reaction Last Updated Verified No Known Drug Allergies 01/23/21 No Disposition/Orders: Other (D/C TO SNF) Justicifation of Admission Dx: Justifications for Admission: Justification of Admission Dx: N/A JOBY CM MD Jan 27, 2021 13:17
[2021-01-27] MEDS ORDERED: DOCU-109 PO (13:20)
[2021-01-27] MEDS ORDERED: GABA-585 PO (13:20)
[2021-01-27] MEDS ORDERED: ASPI325T8 PO (13:20)
[2021-01-27] MEDS ORDERED: POLY17PO52 PO (13:20)
[2021-01-27] MEDS ORDERED: ACET325T21 PO (13:20)
--- NOTE | 2021-01-27 13:22 | SNU/HH DC ---
DISCHARGE ORDERS DISCHARGE INFORMATION: DISCHARGE DATE: Jan 27, 2021 FINAL DIAGNOSIS Problems Medical Problems: (1) Fracture dislocation of right ankle joint Status: Acute CONDITION ON DISCHARGE: Stable CODE STATUS: Code Status: Full FCI: SNF STAY <30 DAYS: Yes HOSPICE: HOSPICE: No HOSPICE EVAL & TREAT: No LTAC: ADMIT TO LTAC: No POST DISCHARGE ORDERS: ACTIVITY ORDERS: Progressive ambulation DIET AFTER DISCHARGE: Cardiac CHECKS AFTER DISCHARGE: CHECKS AFTER DISCHARGE: Check blood press - daily FOLLOW-UP: PHYSICIAN FOLLOW-UP: SEE PCP AT SNF TODAY, ORTHO IN 1-2 WEEKS DIRECTED TREATMENT/EQUIPMENT ORDERS: ADAPTIVE EQUIPMENT NEEDED: Front wheeled walker Physical Therapy For: Evalulation/Treatment Occupational Therapy For: Evaluation/Treatment DISCHARGE MEDICATIONS: Home Meds Active Scripts Gabapentin (GABAPENTIN ) 100 Mg Capsule, 100 MG PO TID PRN for PAIN for 10 Days, #30 CAP Prov:JOBY CM MD 01/27/21 Polyethylene Glycol 3350 (POLYETHYLENE GLYCOL 3350) 17 Gm Powd.pack, 17 GM PO PRN DAILY PRN for CONSTIPATION 1ST CHOICE for 14 Days, #14 PKT Prov:JOBY CM MD 01/27/21 Docusate Sodium (COLACE) 100 Mg Capsule, 100 MG PO PRN DAILY PRN for HARD STOOLS for 14 Days, #30 CAP Prov:JOBY CM MD 01/27/21 Acetaminophen (ACETAMINOPHEN) 325 Mg Tablet, 650 MG PO PRN Q4HRS PRN for TEMP OVER 100.4F OR MILD PAIN for 14 Days, #60 TAB Prov:JOBY CM MD 01/27/21 Aspirin (ASPIRIN) 325 Mg Tablet, 325 MG PO DAILYWBKFT for HEART HEALTH for 30 Days, #30 TAB Prov:JOBY CM MD 01/27/21 Reported Medications Pantoprazole Sodium (Pantoprazole Sodium) 40 Mg Tablet.dr, 1 TAB PO BID for GERD 01/24/21 Discontinued Reported Medications Estradiol (ESTRADIOL) 1 Each Patch.tdwk, 1 PATCH TD WEEKLY for unk 01/24/21 JOBY CM MD Jan 27, 2021 13:21
--- NOTE | 2021-01-27 13:55 | NUR ---
SW following. Discussed with RN, therapy recommending SNF. CELE met with pt and pt's son at bedside, pt agreeable would like a facility near her son's home and who are allowing visitors. CELE looked up pt's son's zipcode and found some facilities. HCR Lisa did not answer the phone, [facility] has beds and are allowing visitors. CELE discussed with pt and pt's son again, they are agreeable to [facility]. CELE phoned and faxed referral - pt accepted pending repeat COVID swab. RN obtained COVID swab this morning, awaiting result. CELE will continue to follow. Addendum: 01/27/21 at 1557 by MICHELE OAKLEY Discharge orders faxed to [facility], awaiting transportation time. RN notified. Addendum: 01/27/21 at 1616 by MICHELE OAKLEY Transportation arranged by [facility] for [id number]. RN notified. No further SW needs.
[2021-01-27] MEDS ORDERED: HYDR-2761 PO ×2 (14:29→15:27)
[2021-01-27 14:49] VITALS: BP 149/55
--- NOTE | 2021-01-27 19:27 | NUR ---
Tried to call report to [facility] . Called at [phone] & [phone]. Got a voicemail both times stating mailbox is full. Unable to leave msg.
== END 2021-01-27 17:00 | DRG 494 ==
LOC: ER 16:08 → 4 NORTH 17:45
PROVIDERS: ADMIT Internal Medicine; ATTEND Internal Medicine
PROC: 0QSG04Z Reposition Right Tibia with Internal Fixation Device, Open Approach (ICD-10-PCS; principal; 2021-01-23 20:00)
DX: S82.851A Displaced trimalleolar fracture of right lower leg, initial encounter for closed fracture (principal); S93.06XA Dislocation of unspecified ankle joint, initial encounter; R73.03 Prediabetes; S93.04XA Dislocation of right ankle joint, initial encounter; G47.9 Sleep disorder, unspecified; Z90.49 Acquired absence of other specified parts of digestive tract; W18.39XA Other fall on same level, initial encounter; Y93.89 Activity, other specified; Y92.89 Other specified places as the place of occurrence of the external cause; Y99.8 Other external cause status
CPT/HCPCS: 27818; 36415; 71045; 73600; 73610; 76000; 80048; 83036; 83735; 84100; 85007; 85025; 85610; 87426; 96374; 96375; 96376; A4930; A6253; A6402; A6449; A6455; C1713; C9113; J0330; J0690; J0780; J1170; J1200; J2060; J2250; J2270; J2370; J2405; J2704; J2765; J3010; J3490; J7030; U0003; 97116-GP; 97530-GP; 99285-25; G0378

== ENCOUNTER → 2021-07-21 | Outpatient (CLI) | payer MEDICARE ==
[~2021-07-21] MED LIST: ACET325T21 PO; ASPI325T8 PO; DOCU-109 PO; ESTR1PAT33 TD; GABA-585 PO; HYDR-2761 PO; PANT40TA6 PO; POLY17PO52 PO
--- NOTE | 2021-07-21 12:16 | KCIC ---
INDICATION: Screening for osteopenia/osteoporosis. Reason: MENOPAUSAL / Spl. Instructions: / Histor y: COMPARISON: None. TECHNIQUE: Bone densitometry was performed through the lumbar spine and proximal femur. IMPRESSION: Lumbar Spine: BMD: 1.1 T-Score: 0.7 Range: Normal. Increased by 11 percent from prior. Proximal Femur: BMD: 0.93 T-Score: -0.1 Range: Normal. Increased by 8 percent from prior. World Health Organization Criteria for Bone Density: T-Score: > -1.0: Normal Range < -1.0 to -2.5: Osteopenic Range < -2.5: Osteoporotic Range Electronically signed by: Jose Ramon Hamlin MD (07/21/2021 12:13 PM) [id number]
--- NOTE | 2021-07-21 13:11 | KCIC ---
Bilateral digital screening mammograms with 3-D tomosynthesis: Reason for examination: Routine screening. Comparison is made to previous studies dated 04/12/2020 and 12/02/2016. Bilateral mammograms in CC and oblique projections were obtained with 2-D imaging and 3-D tomosynthes is imaging on a Siemens Inspiration unit and reviewed on the workstation. Interpretation was made kerrie urbano the benefit of CAD. The skin and nipples show no abnormalities. No abnormal axillary lymph nodes are seen. The breast par enchyma is heterogeneously dense. (Breast density: Category C.) There are a few small nodular parench ymal asymmetries which are stable. There are no new dominant masses, suspicious calcifications or arc hitectural distortion. A few benign calcifications are again seen. Impression: No evidence of malignancy. Recommend routine screening. Your patient's mammogram demonstrates that she has dense breast tissue (breast density category C or D), which could hide abnormalities, and if she has other risk factors for breast cancer that have bee n identified, she might benefit from supplemental screening tests that may be suggested by you as her ordering physician. Dense breast tissue, in and of itself, is a relatively common condition. Therefo re, this information is not provided to cause undue concern, but rather to raise your awareness and t o promote discussion with your patient regarding the presence of other risk factors, in addition to d ense breast tissue. Your patient's mammography results will be sent to her. BI-RAD Category 2: Benign. "Our facility is accredited by the [employer] Mammography Program." This patient's information has been entered into a reminder system for the patient to be notified kerrie urbano the results of her examination and a target date for the next mammogram. Electronically signed by: Ying Duran MD (07/21/2021 1:08 PM) [id number]
--- NOTE | 2021-07-21 15:51 | KCIC ---
XR LUMBAR SPINE 2-3V History: Reason: LBP WITH RADICULOPATHY OF LLE / Spl. Instructions: / History: Technique: 3 views lumbar spine. Comparison: None. Findings: Surgical clips right upper quadrant. Grade 1 anterolisthesis L4 on L5. Normal vertebral body height. No acute fracture. Mild degenerative disc changes most prominent L2-L3, L4-5 and L5-S1. Vascular calc ifications. Impression: 1. Mild lumbar spondylosis. 2. Grade 1 anterolisthesis L4 on L5. Electronically signed by: Rusty Durham DO (07/21/2021 3:48 PM) [id number]
== END ==
LOC: KCIC MAMMO 10:56
PROVIDERS: ATTEND Family Medicine
DX: Z12.31 Encounter for screening mammogram for malignant neoplasm of breast (principal); M47.817 Spondylosis without myelopathy or radiculopathy, lumbosacral region; M43.16 Spondylolisthesis, lumbar region; Z78.0 Asymptomatic menopausal state
CPT/HCPCS: 72100; 77063; 77067; 77080